=== PATIENT | male | born 1955 | race Caucasian/White ===

== ENCOUNTER → 2019-08-20 14:34 | Outpatient (BNVA) | payer MEDICAID, SELFPAY | PROVIDERS: Family Provider Nurse Practitioner; PCP Nurse Practitioner; Visit Provider Family Medicine | DX: N39.0 Urinary tract infection, site not specified (principal); N20.0 Calculus of kidney | CPT/HCPCS: 81001; 81003 ==

== ENCOUNTER → 2019-09-21 13:10 | Outpatient (BNVA) | payer MEDICAID, SELFPAY | PROVIDERS: Family Provider Nurse Practitioner; PCP Nurse Practitioner; Visit Provider Nurse Practitioner | DX: F20.89 Other schizophrenia (principal) | CPT/HCPCS: 99213 ==

== ENCOUNTER → 2019-10-31 11:55 | Outpatient (BNVA) | payer MEDICAID, SELFPAY | PROVIDERS: Family Provider Nurse Practitioner; PCP Nurse Practitioner Family; Visit Provider Nurse Practitioner Family | DX: R63.4 Abnormal weight loss (principal); S00.91XA Abrasion of unspecified part of head, initial encounter; X58.XXXA Exposure to other specified factors, initial encounter | CPT/HCPCS: 80053; 84443; 85025; 86705; 86706; 86709; 86803; 87340; 87806 ==

== ENCOUNTER → 2019-12-17 08:18 | Outpatient (BNVA) | payer MEDICAID, SELFPAY | PROVIDERS: Family Provider Nurse Practitioner; PCP Nurse Practitioner Family; Visit Provider Nurse Practitioner | DX: F20.89 Other schizophrenia (principal) | CPT/HCPCS: 99213 ==

== ENCOUNTER → 2020-01-08 17:36 | Outpatient (BNVA) | payer MEDICAID, SELFPAY | PROVIDERS: Family Provider Nurse Practitioner; PCP Nurse Practitioner Family; Visit Provider Nurse Practitioner Family | DX: R60.9 Edema, unspecified (principal) | CPT/HCPCS: 80053; 85025 ==

== ENCOUNTER → 2020-02-05 15:15 | Outpatient (BNVA) | payer MEDICAID, SELFPAY | PROVIDERS: Family Provider Nurse Practitioner; PCP Nurse Practitioner Family; Visit Provider Nurse Practitioner Family | DX: E78.5 Hyperlipidemia, unspecified (principal); E55.9 Vitamin D deficiency, unspecified; G40.909 Epilepsy, unspecified, not intractable, without status epilepticus; W57.XXXA Bitten or stung by nonvenomous insect and other nonvenomous arthropods, initial encounter | CPT/HCPCS: 80053; 80061; 80164; 82306; 85025 ==

== ENCOUNTER 2020-02-23 15:11 | Emergency (ER) | payer MEDICAID, SELFPAY ==
[2020-02-23 15:20] VITALS: BP 105/75; PULSE 86; RESP 18; TEMP 36.3; O2SAT 96; BMI 32.5
--- NOTE | 2020-02-23 15:38 | W.ED.SKABFB ---
HPI - Skin/Abscess/Foreign Bdy General: Chief complaint: Skin/Abscess/Foreign Body Stated complaint: bite on ear Time Seen by Provider: 02/23/20 15:29 History of Present Illness: HPI narrative: Patient states that while walking outside last night he felt like he might have been bit on the back of his left ear by a bug. Complains of tenderness behind left ear. No obvious bite rosemary induration or erythema. Patient has significant dry skin of his face especially behind his ears. No areas of concern noted MD complaint: other (Dry flaking skin) Onset (ago): day(s) (1 day) Location: face Severity: mild Pain Consistency: now resolved Exacerbating factors: none Context: none Associated symptoms: Reports no associated symptoms Treatments prior to arrival: none Review of Systems General: Reports: 10 or more systems reviewed and unremarkable except in HPI and below Skin/Breast: Reports: dry skin (Face and neck) PFS ED PFSH: Medical History Epilepsy Hyperlipidemia Other schizophrenia Vitamin D deficiency Family History Family/Other Hyperlipidemia Hypertension Stroke Social History Smoking and tobacco status: never smoked Second hand smoke exposure: No Caregiver/support person: Yes (brother) Lives independently: Yes Marital status: Single service: No Current occupational status: disabled History of recent travel: No Current gender identity: Male Physical Exam Const: COMMON NORMALS: no acute distress, average body habitus and patient oriented x3 HENMT: COMMON NORMALS: normocephalic and atraumatic HEAD & SCALP: normal to inspection, normocephalic and atraumatic Eye: COMMON NORMALS: Equal, round and reactive pupils present GENERAL EYE: appearance normal, both eyes and all related structures PUPIL: Yes Equal, round and reactive pupils present Neck/C-Spine: COMMON NORMALS: full ROM, no lymphadenopathy and no JVD Resp: COMMON NORMALS: normal respiratory effort, No retractions, No use of accessory muscles and clear to auscultation bilaterally AUSCULTATION: clear to auscultation bilaterally Cardio: COMMON NORMALS: no JVD, regular rate and regular rhythm RATE: regular rate RHYTHM: regular rhythm GI: COMMON NORMALS: Normal to inspection, nondistended, normoactive bowel sounds present Neuro: COMMON NORMALS: patient oriented x3 Skin: COMMON NORMALS: no rashes or lesions noted GENERAL SKIN EXAM: no rashes or lesions noted and dry skin (Significant dry skin the face, and behind ears with flaking) Course Vital Signs: Vital signs: Vital Signs Temperature 97.4 F L 02/23/20 15:20 Pulse Rate 86 02/23/20 15:20 Respiratory Rate 18 02/23/20 15:20 Blood Pressure 105/75 02/23/20 15:20 Pulse Oximetry 96 02/23/20 15:20 MDM - Skin/Abscess/Foreign Bdy MDM Narrative: Medical decision making narrative: Discussed using Eucerin, or another scent free moisturizer for face and behind ears especially along neck. Follow-up with primary care provider Discharge Plan Discharge Patient Disposition: Home, Self-Care Clinical Impression: Dry skin dermatitis Condition: Stable Prescriptions: No Action tramadol 50 mg tablet 50 mg PO Q8H PRN (Reason: pain) Qty: 20 RF: 0 sertraline 100 mg tablet 100 mg PO Q24H Qty: 30 RF: 2 paliperidone [Invega] 9 mg tablet extended release 24hr 9 mg PO DAILY Qty: 30 RF: 2 propranolol [Inderal LA] 60 mg capsule,extended release 24 hr 60 mg PO DAILY Qty: 30 RF: 2 mupirocin 2 % ointment 1 applic TOPICAL BID Qty: 15 RF: 0 cholecalciferol (vitamin D3) 2,000 unit tablet 2,000 unit PO ONCE RF: 0 fluticasone propionate [Flonase Allergy Relief] 50 mcg/actuation spray,suspension 2 spray INTRANASAL ONCE RF: 0 albuterol sulfate [ProAir HFA] 90 mcg/actuation HFA aerosol inhaler 2 puff INHALATION Q6H PRNRF: 0 olopatadine [Pataday] 0.2 % drops 1 drop ophthalmic (eye) QAM RF: 0 divalproex [Depakote ER] 500 mg tablet extended release 24 hr 1,000 mg PO .at bed RF: 0 diclofenac sodium 50 mg tablet,delayed release (DR/EC) 50 mg PO BID Qty: 60 RF: 2 phenazopyridine [Pyridium] 100 mg tablet 100 mg PO TID PRN (Reason: pain) Qty: 20 RF: 0 docusate sodium [Colace] 100 mg capsule 100 mg PO DAILY Qty: 30 RF: 5 montelukast [Singulair] 10 mg tablet 10 mg PO DAILY Qty: 30 RF: 5 aspirin [Adult Aspirin Regimen] 81 mg tablet,delayed release (DR/EC) 81 mg PO DAILY Qty: 90 RF: 3 atorvastatin 40 mg tablet See Rx Instructions .ROUTE .COMPLEX Qty: 30 RF: 5 magnesium oxide 400 mg (241.3 mg magnesium) tablet See Rx Instructions .ROUTE .COMPLEX Qty: 60 RF: 5 loratadine 10 mg tablet See Rx Instructions .ROUTE .COMPLEX Qty: 30 RF: 11 Discharge Orders: Discharge Order (Routine); Ordered 02/23/20 Ordered By: Oriana Gee Referrals: Santos Erazo FNP-C [Family Provider] - Dafne Torres FNP [Primary Care Provider] - Discharge Diet: Usual diet Discharge Activity: Resume usual activity Activity Restrictions/Additional Instructions: Use a facial moisturizer that is scent free such as Aveeno or Eucerin daily. 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
[2020-02-23 16:07] VITALS: BP 116/71; PULSE 74; RESP 18; TEMP 36.3; O2SAT 96
== END 2020-02-23 16:09 | disposition home or self-care (01) ==
LOC: ER 16:10
PROVIDERS: Emergency Provider Nurse Practitioner Family; Family Provider Nurse Practitioner; PCP Nurse Practitioner Family
DX: L30.8 Other specified dermatitis (principal); Z79.82 Long term (current) use of aspirin; E78.5 Hyperlipidemia, unspecified
CPT/HCPCS: 12345; 99281

== ENCOUNTER → 2020-03-14 08:25 | Outpatient (BNVA) | payer MEDICAID, SELFPAY | PROVIDERS: Family Provider Nurse Practitioner; PCP Nurse Practitioner Family; Visit Provider Nurse Practitioner | DX: F20.89 Other schizophrenia (principal); F41.1 Generalized anxiety disorder | CPT/HCPCS: 99213 ==

== ENCOUNTER → 2020-05-13 09:02 | Outpatient (BNVA) | payer OTHER, SELFPAY | PROVIDERS: Family Provider Nurse Practitioner; PCP Nurse Practitioner Family; Visit Provider Nurse Practitioner | DX: F20.0 Paranoid schizophrenia (principal); Z79.899 Other long term (current) drug therapy | CPT/HCPCS: 80061; 83036 ==

== ENCOUNTER → 2020-05-19 08:21 | Outpatient (BNVA) | payer MEDICAID, SELFPAY ==
[2020-05-14 09:06] VITALS: BP 130/83; BMI 31.7
== END ==
PROVIDERS: Family Provider Nurse Practitioner; PCP Nurse Practitioner Family; Visit Provider Nurse Practitioner
DX: F20.89 Other schizophrenia (principal); F41.1 Generalized anxiety disorder; G40.309 Generalized idiopathic epilepsy and epileptic syndromes, not intractable, without status epilepticus
CPT/HCPCS: 99212; 99213

== ENCOUNTER → 2020-06-03 14:40 | Outpatient (BNVA) | payer MEDICAID, SELFPAY ==
[2020-05-14 09:06] VITALS: BP 130/83; BMI 31.7
== END ==
PROVIDERS: Family Provider Nurse Practitioner; PCP Nurse Practitioner Family; Visit Provider Nurse Practitioner Family
DX: R10.84 Generalized abdominal pain (principal); B37.81 Candidal esophagitis; B37.0 Candidal stomatitis; R19.7 Diarrhea, unspecified
CPT/HCPCS: 80053; 85025

== ENCOUNTER → 2020-06-09 17:01 | Outpatient (BNVA) | payer MEDICAID, SELFPAY ==
[2020-05-14 09:06] VITALS: BP 130/83; BMI 31.7
== END ==
PROVIDERS: Family Provider Nurse Practitioner; PCP Nurse Practitioner Family; Visit Provider Nurse Practitioner Family
DX: N30.90 Cystitis, unspecified without hematuria (principal); R10.84 Generalized abdominal pain
CPT/HCPCS: 80053; 81003

== ENCOUNTER → 2020-06-19 14:19 | Outpatient (BNVA) | payer MEDICAID, SELFPAY ==
[2020-05-14 09:06] VITALS: BP 130/83; BMI 31.7
== END ==
PROVIDERS: Family Provider Nurse Practitioner; PCP Nurse Practitioner Family; Visit Provider Nurse Practitioner
DX: J02.9 Acute pharyngitis, unspecified (principal)
CPT/HCPCS: 87071; 87880

== ENCOUNTER → 2020-09-05 07:53 | Outpatient (BNVA) | payer MEDICAID, SELFPAY ==
[2020-05-14 09:06] VITALS: BP 130/83; BMI 31.7
== END ==
PROVIDERS: Family Provider Nurse Practitioner; PCP Nurse Practitioner Family; Visit Provider Nurse Practitioner
DX: F20.89 Other schizophrenia (principal); F33.40 Major depressive disorder, recurrent, in remission, unspecified
CPT/HCPCS: 99214

== ENCOUNTER → 2020-09-11 14:03 | Outpatient (BNVA) | payer MEDICAID, SELFPAY ==
[2020-05-14 09:06] VITALS: BP 130/83; BMI 31.7
== END ==
PROVIDERS: Family Provider Nurse Practitioner; PCP Nurse Practitioner Family; Visit Provider Nurse Practitioner Family
DX: M25.561 Pain in right knee (principal); M25.562 Pain in left knee; M17.11 Unilateral primary osteoarthritis, right knee
CPT/HCPCS: 73562

== ENCOUNTER → 2020-09-23 15:19 | Outpatient (BNVA) | payer MEDICAID, SELFPAY ==
[2020-09-16 15:52] VITALS: BP 130/83; BMI 31.7
== END ==
PROVIDERS: Family Provider Nurse Practitioner; PCP Nurse Practitioner Family; Visit Provider Nurse Practitioner Family
DX: M25.552 Pain in left hip (principal); M54.5 Low back pain
CPT/HCPCS: 72100; 73502

== ENCOUNTER → 2020-11-21 07:35 | Outpatient (BNVA) | payer MEDICAID, SELFPAY ==
[2020-09-16 15:52] VITALS: BP 130/83; BMI 31.7
== END ==
PROVIDERS: Family Provider Nurse Practitioner; PCP Nurse Practitioner Family; Visit Provider Nurse Practitioner
DX: F20.89 Other schizophrenia (principal); F33.40 Major depressive disorder, recurrent, in remission, unspecified
CPT/HCPCS: 99214

== ENCOUNTER → 2021-01-09 13:47 | Outpatient (BNVA) | payer MEDICAID, SELFPAY ==
[2020-09-16 15:52] VITALS: BP 130/83; BMI 31.7
== END ==
PROVIDERS: Family Provider Nurse Practitioner; PCP Nurse Practitioner Family; Visit Provider Nurse Practitioner Family
DX: N39.0 Urinary tract infection, site not specified (principal); L71.9 Rosacea, unspecified; H00.012 Hordeolum externum right lower eyelid; Z68.30 Body mass index [BMI] 30.0-30.9, adult
CPT/HCPCS: 81000

== ENCOUNTER → 2021-01-20 17:36 | Outpatient (BNVA) | payer MEDICAID, SELFPAY ==
[2020-09-16 15:52] VITALS: BP 130/83; BMI 31.7
== END ==
PROVIDERS: Family Provider Nurse Practitioner; PCP Nurse Practitioner Family; Visit Provider Nurse Practitioner Family
DX: R41.0 Disorientation, unspecified (principal)
CPT/HCPCS: 80053; 81000; 85025; 87071; 87880

== ENCOUNTER → 2021-01-22 15:39 | Outpatient (BNVA) | payer MEDICAID, SELFPAY ==
[2020-09-16 15:52] VITALS: BP 130/83; BMI 31.7
== END ==
PROVIDERS: Family Provider Nurse Practitioner; PCP Nurse Practitioner Family; Visit Provider Nurse Practitioner Family
DX: W57.XXXA Bitten or stung by nonvenomous insect and other nonvenomous arthropods, initial encounter (principal)
CPT/HCPCS: 80053; 85025; 86618; 86666; 86757

== ENCOUNTER 2021-02-14 09:31 | Emergency (ER) | payer MEDICAID, SELFPAY ==
[2020-09-16 15:52] VITALS: BP 130/83; BMI 31.7
[2021-02-14 09:39] VITALS: BP 151/107; PULSE 90; RESP 16; TEMP 36.8; O2SAT 98; BMI 31.8
[2021-02-14 09:53] VITALS: BP 133/73; PULSE 85; RESP 16; O2SAT 98
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
[2021-02-14] MEDS: acetaminophen 500 mg Tablet 1000 MG PO (10:31)
[2021-02-14 11:19] VITALS: BP 127/69; PULSE 86; O2SAT 97
== END 2021-02-14 11:20 | disposition home or self-care (01) ==
PROVIDERS: Emergency Provider Physician Assistant; PCP Nurse Practitioner Family
DX: S13.4XXA Sprain of ligaments of cervical spine, initial encounter (principal); M54.9 Dorsalgia, unspecified; V89.2XXA Person injured in unspecified motor-vehicle accident, traffic, initial encounter; Z79.82 Long term (current) use of aspirin; E78.5 Hyperlipidemia, unspecified
CPT/HCPCS: 72125; 72131; 99283

== ENCOUNTER → 2021-03-31 07:50 | Outpatient (BNVA) | payer MEDICAID, SELFPAY ==
[2020-09-16 15:52] VITALS: BP 130/83; BMI 31.7
== END ==
PROVIDERS: PCP Nurse Practitioner Family; Visit Provider Nurse Practitioner
DX: F33.40 Major depressive disorder, recurrent, in remission, unspecified (principal); F20.89 Other schizophrenia
CPT/HCPCS: 99214

== ENCOUNTER → 2021-04-10 13:27 | Outpatient (BNVA) | payer MEDICAID, SELFPAY ==
[2020-09-16 15:52] VITALS: BP 130/83; BMI 31.7
== END ==
PROVIDERS: PCP Nurse Practitioner Family; Visit Provider Nurse Practitioner Family
DX: N30.01 Acute cystitis with hematuria (principal)
CPT/HCPCS: 81000; 87077; 87086; 87184

== ENCOUNTER → 2021-05-20 14:07 | Outpatient (BNVA) | payer MEDICAID, SELFPAY ==
[2020-09-16 15:52] VITALS: BP 130/83; BMI 31.7
== END ==
PROVIDERS: PCP Nurse Practitioner Family; Visit Provider Specialist
DX: G40.909 Epilepsy, unspecified, not intractable, without status epilepticus (principal)
CPT/HCPCS: 99213; 99214

== ENCOUNTER → 2021-06-02 16:34 | Outpatient (BNVA) | payer MEDICAID, SELFPAY ==
[2020-09-16 15:52] VITALS: BP 130/83; BMI 31.7
== END ==
PROVIDERS: PCP Nurse Practitioner Family; Visit Provider Nurse Practitioner Family
DX: M25.561 Pain in right knee (principal); M25.562 Pain in left knee; R07.9 Chest pain, unspecified; M17.0 Bilateral primary osteoarthritis of knee
CPT/HCPCS: 73562; 80053; 80061; 83735; 84443; 85025

== ENCOUNTER → 2021-06-04 13:04 | Outpatient (BNVA) | payer MEDICAID, SELFPAY ==
[2020-09-16 15:52] VITALS: BP 130/83; BMI 31.7
== END ==
PROVIDERS: PCP Nurse Practitioner Family; Visit Provider Nurse Practitioner Family
DX: R30.0 Dysuria (principal); N48.1 Balanitis
CPT/HCPCS: 81003

== ENCOUNTER → 2021-06-15 15:42 | Outpatient (BNVA) | payer MEDICAID, SELFPAY ==
[2021-06-09 08:57] VITALS: BP 130/83; BMI 31.7
== END ==
PROVIDERS: PCP Nurse Practitioner Family; Visit Provider Nurse Practitioner Family
DX: J02.9 Acute pharyngitis, unspecified (principal)
CPT/HCPCS: 87071; 87880

== ENCOUNTER → 2021-07-01 07:51 | Outpatient (BNVA) | payer MEDICAID, SELFPAY ==
[2021-06-09 08:57] VITALS: BP 130/83; BMI 31.7
== END ==
PROVIDERS: PCP Nurse Practitioner Family; Visit Provider Nurse Practitioner
DX: F20.89 Other schizophrenia (principal); F33.40 Major depressive disorder, recurrent, in remission, unspecified
CPT/HCPCS: 99214

== ENCOUNTER → 2021-08-31 14:12 | Outpatient (BNVA) | payer MEDICAID, SELFPAY ==
[2021-06-09 08:57] VITALS: BP 130/83; BMI 31.7
== END ==
PROVIDERS: PCP Nurse Practitioner Family; Visit Provider Nurse Practitioner
DX: F33.40 Major depressive disorder, recurrent, in remission, unspecified (principal); F20.89 Other schizophrenia
CPT/HCPCS: 99214

== ENCOUNTER → 2021-09-28 14:26 | Outpatient (BNVA) | payer MEDICAID, SELFPAY ==
[2021-06-09 08:57] VITALS: BP 130/83; BMI 31.7
== END ==
PROVIDERS: PCP Nurse Practitioner Family; Visit Provider Specialist
DX: M25.561 Pain in right knee (principal); M25.562 Pain in left knee; M17.0 Bilateral primary osteoarthritis of knee
CPT/HCPCS: 73560; 73565

== ENCOUNTER → 2021-09-29 08:22 | Outpatient (BNVA) | payer MEDICAID, SELFPAY ==
[2021-06-09 08:57] VITALS: BP 130/83; BMI 31.7
== END ==
PROVIDERS: PCP Nurse Practitioner Family; Visit Provider Nurse Practitioner
DX: F20.89 Other schizophrenia (principal); F33.40 Major depressive disorder, recurrent, in remission, unspecified
CPT/HCPCS: 99214

== ENCOUNTER → 2021-11-18 09:27 | Outpatient (BNVA) | payer MEDICAID, SELFPAY ==
[2021-06-09 08:57] VITALS: BP 130/83; BMI 31.7
== END ==
PROVIDERS: PCP Nurse Practitioner Family; Visit Provider Specialist
DX: G40.309 Generalized idiopathic epilepsy and epileptic syndromes, not intractable, without status epilepticus (principal)
CPT/HCPCS: 99213

== ENCOUNTER → 2021-11-25 11:43 | Outpatient (BNVA) | payer MEDICAID, SELFPAY ==
[2021-11-24 08:31] VITALS: BP 130/83; BMI 31.7
== END ==
PROVIDERS: PCP Nurse Practitioner Family; Visit Provider Nurse Practitioner Family
DX: E78.5 Hyperlipidemia, unspecified (principal); Z12.5 Encounter for screening for malignant neoplasm of prostate; R73.9 Hyperglycemia, unspecified; E55.9 Vitamin D deficiency, unspecified; N40.0 Benign prostatic hyperplasia without lower urinary tract symptoms; K21.9 Gastro-esophageal reflux disease without esophagitis; J30.9 Allergic rhinitis, unspecified
CPT/HCPCS: 80053; 80061; 82306; 83036; 83735; 84443; 85025; G0103

== ENCOUNTER → 2021-12-22 11:01 | Outpatient (BNVA) | payer MEDICAID, SELFPAY ==
[2021-11-24 08:31] VITALS: BP 130/83; BMI 31.7
== END ==
PROVIDERS: PCP Nurse Practitioner Family; Visit Provider Nurse Practitioner
DX: F33.40 Major depressive disorder, recurrent, in remission, unspecified (principal); F20.89 Other schizophrenia
CPT/HCPCS: 99214

== ENCOUNTER 2022-03-26 14:10 | Inpatient (IN) | payer MEDICAID, SELFPAY ==
[2021-11-24 08:31] VITALS: BP 130/83; BMI 31.7
[2022-03-26] VITALS (7 sets, daily range): BP systolic 85–127; BP diastolic 59–79; PULSE 77–87; RESP 16–24; TEMP 36.7–37.5; O2SAT 94–96; BMI 30.5
--- NOTE | 2022-03-26 15:18 | CTR_ITS ---
PROCEDURE INFORMATION: Exam: CT Abdomen And Pelvis Without Contrast Exam date and time: 03/26/2022 3:38 PM Age: 66 years old Clinical indication: Abdominal pain; Generalized; Patient HX: PT states HX of kidney stones; Limited HX due to PT communication ability; Additional info: Flank pain TECHNIQUE: Imaging protocol: Computed tomography of the abdomen and pelvis without contrast. Radiation optimization: All CT scans at this facility use at least one of these dose optimization techniques: automated exposure control; mA and/or kV adjustment per patient size (includes targeted exams where dose is matched to clinical indication); or iterative reconstruction. COMPARISON: CR XR hip LT 2-3V wo/w pel* [id number] 09/23/2020 3:25 PM RADIATION DOSE METRICS: Total DLP (mGy-cm): 1036.13 FINDINGS: Lungs: Left basilar linear scarring-atelectasis. Heart: Mild cardiomegaly with no obvious coronary calcification. Next item tiny hiatal hernia. Liver: Mild hepatomegaly with steatosis. No cirrhosis. Gallbladder and bile ducts: Normal. No calcified stones. No ductal dilation. Pancreas: Fatty replacement of the pancreas with no obvious ductal dilatation. Spleen: Normal. No splenomegaly. Adrenal glands: Normal. No mass. Kidneys and ureters: Minimal nonspecific perinephric stranding without collection. UTI should be excluded clinically. No hydronephrosis or obstructing calculi. Stomach and bowel: Moderate amount of fecal retention. No obvious bowel dilatation, pneumatosis or suspicious bowel wall thickening however assessment is limited due to lack of contrast. Extensive colonic diverticulosis. Appendix: Normal appendix. Intraperitoneal space: Unremarkable. No free air. No significant fluid collection. Vasculature: No abdominal aortic aneurysm. Lymph nodes: No enlarged lymph nodes. Urinary bladder: Urinary bladder is suboptimally assessed due to incomplete distention however there is possible nonspecific bladder wall thickening. This may be related to chronic hypertrophy and/or cystitis. Clinical correlation is needed. Reproductive: Mildly enlarged prostate. Bones/joints: Multilevel vertebral disc degeneration and endplate osteophytes. No acute osseous findings otherwise. Soft tissues: Tiny bilateral fat-containing inguinal hernias. CT/CT kidney stone [id number] IMPRESSION: 1. Mild hepatomegaly with steatosis. 2. No obstructing urinary calculi. Mild perinephric stranding and possible mild bladder wall thickening. See discussion above. 3. Mildly enlarged prostate. 4. Colonic diverticulosis without acute bowel findings. Somewhat limited exam due to lack of contrast.
--- NOTE | 2022-03-26 15:20 | XR_ITS ---
WS: [id number] XR chest 1V portable [id number] REASON FOR EXAM: abd pain FINDINGS: Moderate tortuosity and ectasia of the thoracic aorta. Normal heart size. Calcified granulomatous disease in both hemithoraces. No acute pulmonary parenchymal or pleural disease. Mild to moderate thoracic scoliosis with mild to moderate degenerative spondylosis. XR/XR chest 1V portable [id number] IMPRESSION: No acute chest abnormality.
--- NOTE | 2022-03-26 15:21 | ED_ITS ---
HPI - Abdominal Pain General: Chief Complaint: Abdominal Pain Stated Complaint: KIDNEY STONES Time Seen by Provider: 03/26/22 15:11 Source: patient Mode of arrival: ambulatory Limitations: no limitations History of Present Illness: 66-year-old male states he had a history of kidney stones he states that over the last 2 days he has been having increasing flank pain along with some dysuria and is concerned he either has a kidney stone or a kidney infection. Said some mild abdominal pain he states flank pain is a 5 out of 10 denies any fever denies any vomiting or diarrhea denies any worsening proving factors denies any chest pain he is in no distress here. Associated Symptoms: Denies chills and fever(s) Review of Systems Const: Denies: fever(s), chills, body aches or change in appetite Eyes: Denies: blurry vision or eye discomfort ENMT: Denies: throat pain or dental pain Card: Denies: chest pain Resp: Denies: dyspnea GI: Reports: abdominal pain : Reports: flank pain Musc: Denies: neck pain or back pain Skin/Breast: Denies: rash Neuro: Denies: headache(s) Psych: Denies: depression Jay/Lymph: Denies: easy bruising All/Imm: Denies: urticaria PFSH ED PFSH: Medical History ASHD (arteriosclerotic heart disease) Constipation Epilepsy Hyperlipidemia Major depressive disorder, recurrent, in remission Major depressive disorder, recurrent, in remission, unspecified Other schizophrenia Paranoid schizophrenia Psychiatric care Psychiatric care Vitamin D deficiency Surgical History History of back surgery (~1993) Hx of arthroscopy of left knee (~2006) Hx of arthroscopy of right knee (1994) Hx of colonoscopy (~2017) recheck 3 yrs Hx of hemorrhoidectomy (~1991) Family History Family/Other Hyperlipidemia Hypertension Stroke Other Cancer Diabetes Social History Smoking and tobacco status: never smoked Second hand smoke exposure: No Alcohol intake: never Adopted: No Caregiver/support person: Yes (brother) Lives independently: Yes Household members: family Marital status: Single service: No Current occupational status: disabled History of recent travel: No Current gender identity: Male Alissa/Confucianist: Yazidi Special alissa needs: No Agree to transfusion: Yes Physical Exam Const: COMMON NORMALS: no acute distress, patient oriented x3 and healthy appearing HENMT: COMMON NORMALS: normocephalic and atraumatic HEAD & SCALP: normocephalic and atraumatic Eye: COMMON NORMALS: Equal, round and reactive pupils present and EOMs intact bilaterally PUPIL: Yes Equal, round and reactive pupils present Neck/C-Spine: COMMON NORMALS: full ROM and supple Chest: COMMONS NORMALS: normal inspection of the chest and normal palpation of entire chest wall Resp: COMMON NORMALS: normal respiratory effort, No retractions, No use of accessory muscles and clear to auscultation bilaterally AUSCULTATION: clear to auscultation bilaterally Cardio: COMMON NORMALS: regular rate, regular rhythm and No murmurs present (Cardio) RATE: regular rate RHYTHM: regular rhythm GI: COMMON NORMALS: Normal to inspection, nondistended, normoactive bowel sounds present, Soft to palpation, non-tender and no masses PALPATION: Yes Soft to palpation Extremity: COMMON NORMALS: normal to inspection and full ROM Neuro: COMMON NORMALS: patient oriented x3, moves all extremities and no focal motor deficits Psych: COMMON NORMALS: mental status grossly normal, Normal thought process present and cooperative THOUGHT PROCESS: Normal thought process present Skin: COMMON NORMALS: no rashes or lesions noted and no wounds GENERAL SKIN EXAM: no rashes or lesions noted Course Vital Signs: Vital signs: Vital Signs Temperature 99.1 F 03/26/22 15:00 Pulse Rate 87 03/26/22 15:17 Respiratory Rate 16 03/26/22 15:17 Blood Pressure 115/68 03/26/22 15:17 Pulse Oximetry 95 03/26/22 15:17 Oxygen Delivery Me thod 03/26/22 15:17 MDM - Abdominal Pain Medical Decision Making Patient presents here with likely pyelonephritis he has some stranding on the CT scan he has an elevated white count along with nitrite positive urine with bacteria in his urine his blood pressure is improved after IV fluids will admit for IV antibiotics patient's been stable while here return if worsening. Lab Data : 03/26/22 15:35 03/26/22 15:35 Labs/Radiology: Radiology Impressions Abdomen/Pelvis CT 03/26/22 15:18 IMPRESSION: 1. Mild hepatomegaly with steatosis. 2. No obstructing urinary calculi. Mild perinephric stranding and possible mild bladder wall thickening. See discussion above. 3. Mildly enlarged prostate. 4. Colonic diverticulosis without acute bowel findings. Somewhat limited exam due to lack of contrast. Chest X-Ray 03/26/22 15:20 IMPRESSION: No acute chest abnormality. Laboratory Results WBC 22.6 10^3/uL (4.0-10.0) H 03/26/22 15:35 RBC 4.58 10^6/uL (4.1-5.3) 03/26/22 15:35 Hgb 13.7 g/dL (11.7-16.6) 03/26/22 15:35 Hct 42.2 % (42.0-52.0) 03/26/22 15:35 MCV 92.1 fl (80-94) 03/26/22 15:35 MCH 29.9 pg (28.0-34.0) 03/26/22 15:35 MCHC 32.5 g/dL (30.0-36.0) 03/26/22 15:35 RDW 14.1 % (12.1-15.1) 03/26/22 15:35 Plt Count 151 10^3/cmm (130-400) 03/26/22 15:35 MPV 10.6 fL (7.4-10.4) H 03/26/22 15:35 Neut % (Auto) 63.7 % 03/26/22 15:35 Lymph % (Auto) 5.9 % 03/26/22 15:35 Valencia % (Auto) 9.7 % 03/26/22 15:35 Eos % (Auto) 19.0 % 03/26/22 15:35 Baso % (Auto) 0.4 % 03/26/22 15:35 Neut # (Auto) 14.40 10^3/uL (1.8-7.7) H 03/26/22 15:35 Lymph # (Auto) 1.3 10^3/uL (0.8-4.8) 03/26/22 15:35 Valencia # (Auto) 2.2 10^3/uL (0.2-0.9) H 03/26/22 15:35 Eos # (Auto) 4.3 10^3/uL (0.0-0.8) H 03/26/22 15:35 Baso # (Auto) 0.1 10^3/uL (0.0-0.1) 03/26/22 15:35 Nucleated RBC % (auto) 0 % 03/26/22 15:35 Nucleated RBCs # 0.0 /100WBC 03/26/22 15:35 Sodium 140 mmol/L (136-145) 03/26/22 15:35 Potassium 3.7 mmol/L (3.5-5.1) 03/26/22 15:35 Chloride 103 mmol/L (98-107) 03/26/22 15:35 Carbon Dioxide 22 mmol/L (22-29) 03/26/22 15:35 Anion Gap 18.7 (5-19) 03/26/22 15:35 BUN 18 mg/dL (8-23) 03/26/22 15:35 Creatinine 1.4 mg/dL (0.7-1.2) H 03/26/22 15:35 GFR Calculation 50.4 mL/min (90-130) L 03/26/22 15:35 Glucose 134 mg/dL (65-115) H 03/26/22 15:35 Calculated Osmolality 294 mOsm/kg (285-295) 03/26/22 15:35 Lactic Acid 2.3 mmol/L (0.5-2.2) H 03/26/22 15:35 Calcium 8.6 mg/dL (8.5-10.5) 03/26/22 15:35 Total Bilirubin 1.1 mg/dL (0.15-1.2) 03/26/22 15:35 AST 15 U/L (0-40) 03/26/22 15:35 ALT 24 U/L (0-41) 03/26/22 15:35 Alkaline Phosphatase 74 IU/L (40-130) 03/26/22 15:35 Total Protein 6.7 g/dL (6.6-8.7) 03/26/22 15:35 Albumin 3.6 g/dL (3.5-5.2) 03/26/22 15:35 Globulin 3.1 g/dL (1.3-4.6) 03/26/22 15:35 Lipase 11 U/L (13-60) L 03/26/22 15:35 Urine Color Tama (Yellow) 03/26/22 17:03 Urine Appearance Cloudy (CLEAR) A 03/26/22 17:03 Urine pH 5 (5-7) 03/26/22 17:03 Ur Specific Stevenson 1.025 (1.005-1.030) 03/26/22 17:03 Urine Protein 3+ (Negative) H 03/26/22 17:03 Urine Glucose (UA) Norm (Normal) 03/26/22 17:03 Urine Ketones 1+ (Negative) H 03/26/22 17:03 Urine Blood 3+ (Negative) H 03/26/22 17:03 Urine Nitrate Positive (Negative) H 03/26/22 17:03 Urine Bilirubin 1+ (Negative) H 03/26/22 17:03 Urine Urobilinogen 1 mg/dL (Negative) H 03/26/22 17:03 Ur Leukocyte Esterase 2+ (Negative) H 03/26/22 17:03 Urine RBC 10-15 /hpf (0-2) H 03/26/22 17:03 Urine WBC Too numerous to cnt /hpf (0-5) H 03/26/22 17:03 Ur Squamous Epith Cells 0-4 /hpf (0-5) H 03/26/22 17:03 Amorphous Sediment Not Reportable 03/26/22 17:03 Urine Bacteria 2+ /hpf (NONE) H 03/26/22 17:03 Discharge Plan Discharge Condition: Stable Prescriptions: No Action sertraline 100 mg tablet 100 mg PO Q24H Qty: 30 2RF propranolol [Inderal LA] 60 mg capsule,extended release 24 hr 60 mg PO DAILY Qty: 30 2RF metronidazole 1 % gel See Rx Instructions .ROUTE .COMPLEX Qty: 60 1RF Dose Instruction: APPLY topically TO THE AFFECTED AREA DAILY. Rx Instructions: APPLY topically TO THE AFFECTED AREA DAILY. paliperidone [Invega] 9 mg tablet extended release 24hr 9 mg PO DAILY Qty: 30 2RF atorvastatin 40 mg tablet 40 mg PO DAILY aspirin 81 mg tablet,delayed release (DR/EC) 81 mg PO DAILY magnesium oxide 400 mg (241.3 mg magnesium) tablet 400 mg PO BID divalproex 500 mg tablet extended release 24 hr 1,000 mg PO BEDTIME docusate sodium 100 mg capsule 100 mg PO DAILY omeprazole 20 mg capsule,delayed release(DR/EC) 20 mg PO BID montelukast 10 mg tablet 10 mg PO DAILY diclofenac sodium 50 mg tablet,delayed release (DR/EC) 50 mg PO BID ergocalciferol (vitamin D2) 1,250 mcg (50,000 unit) capsule 50,000 unit PO Q7D Ventolin HFA 90 mcg/actuation HFA aerosol inhaler 2 puff inhalation Q6H PRN (Reason: Shortness Of Breath) loratadine 10 mg tablet 10 mg PO DAILY Voltaren Arthritis Pain 1 % gel 4 g topical QID PRN (Reason: Pain) Rx Instructions: apply to single knee, ankle, foot; for foot includes sole/toes/top of foot Referrals: Dafne Torres FNP [Primary Care Provider] - Coding Level of Care Code ED Part Time Receptionist for Chg Fwd Exam Comprehensive
[2022-03-26 15:48] LABS: Basophils # 0.1 10^3/uL (0.0-0.1); Basophils % 0.4 %; Eosinophils # 4.3 10^3/uL (0.0-0.8); Hematocrit 42.2 % (42.0-52.0); Hemoglobin 13.7 g/dL (11.7-16.6); Lymphocytes # 1.3 10^3/uL (0.8-4.8); Lymphocytes % 5.9 %; Mean Corpuscular HGB Conc 32.5 g/dL (30.0-36.0); Mean Corpuscular Hemoglobin 29.9 pg (28.0-34.0); Mean Corpuscular Volume 92.1 fl (80-94); Mean Platelet Volume 10.6 fL (7.4-10.4); Monocytes # 2.2 10^3/uL (0.2-0.9); Monocytes % 9.7 %; Neutrophils % 63.7 %; Nucleated Red Blood Cells % 0 %; Platelet Count 151 10^3/cmm (130-400); Red Blood Count 4.58 10^6/uL (4.1-5.3); Red Cell Distribution Width 14.1 % (12.1-15.1); White Blood Count 22.6 10^3/uL (4.0-10.0)
[2022-03-26] MEDS: sodium chloride 0.9% 1,000 ML 999 ML IV (15:55)
[2022-03-26 16:04] LABS: Lactic Sepsis W/Reflex 2.3 mmol/L (0.5-2.2)
[2022-03-26 16:07] LABS: Slide Review Slide Review Perform
[2022-03-26 16:13] LABS: Alanine Aminotransferase 24 U/L (0-41); Albumin Level 3.6 g/dL (3.5-5.2); Alkaline Phosphatase 74 IU/L (40-130); Anion Gap 18.7 (5-19); Aspartate Amino Transferase 15 U/L (0-40); Blood Urea Nitrogen 18 mg/dL (8-23); Calcium 8.6 mg/dL (8.5-10.5); Carbon Dioxide 22 mmol/L (22-29); Chloride 103 mmol/L (98-107); Globulin 3.1 g/dL (1.3-4.6); Glomerular Filtration Rate 50.4 mL/min (90-130); Glucose 134 mg/dL (65-115); Lipase 11 U/L (13-60); Osmolality Calculated 294 mOsm/kg (285-295); Potassium 3.7 mmol/L (3.5-5.1); Sodium 140 mmol/L (136-145); Total Bilirubin 1.1 mg/dL (0.15-1.2); Total Protein 6.7 g/dL (6.6-8.7)
--- NOTE | 2022-03-26 16:26 | PC.PHAR ---
pt unable to verify medications-pt states he has a nurse from [facility] waiting on med list to be faxed from [facility]-medications entered are what ext med history shows has been filled recently-[facility] states the pt told them back in jul 2021 that he no longer was taking flomax states it was making him pee to much rx last filled 08/03/21 30d/s
[2022-03-26 17:22] LABS: Add Urine Microscopic? YES; Bilirubin Urine 1+ (Negative); Blood Urine 3+ (Negative); Glucose Urine UA Norm (Normal); Ketones Urine 1+ (Negative); Leukocyte Esterase Urine 2+ (Negative); Nitrate Urine Positive (Negative); Protein Urine 3+ (Negative); Specific Gravity, Urine 1.025 (1.005-1.030); Urine Appearance Cloudy (CLEAR); Urine Color Orange (Yellow); Urobilinogen Urine 1 mg/dL (Negative); pH Urine 5 (5-7)
[2022-03-26 17:23] LABS: Add Urine Culture? Yes; Bacteria Urine 2+ /hpf; Squamous Epithelial Cell Urine 0-4 /hpf (0-5); WBC Urine TOO NUMEROUS TO CNT /hpf (0-5)
[2022-03-26 17:29] LABS: Reflex Lactate Order REFLEX LACTIC ORDERD
[2022-03-26] MEDS: cefTRIAXone 1,000 MG in sodium chloride 0.9% (plus) 50 ML 100 MG IV (17:50)
[2022-03-26 18:18] LABS: Lactic Acid level (Lactate) 1.8 mmol/L (0.5-2.2)
--- NOTE | 2022-03-26 19:40 | P.HP_ITS ---
Providers/Chief Complaint Admitting Physician: Kaiden Bartlett MD Primary Care Provider: GUERRERO Lockhart Chief Complaint: KIDNEY STONES History of Present Illness Mateo Thomas is a 66 year old male with a past medical history of epilepsy, hyperlipidemia, depression, schizophrenia, CAD, developmental delay, who presents to [facility] due to fatigue, malaise, nausea, flank pain, abdominal pain. He tells me that he has a history of kidney stones, he has been having flank pain, dysuria, for the last few days, has had some nausea, no vomiting episodes, no lightheadedness, dizziness. In the emergency room he was diagnosed with a UTI, CT with evidence of pyelonephritis, no evidence of nephrolithiasis, hospitalist team was called for admission. In the ER no sig nificant hemodynamic instability, no tachycardia, afebrile, on room air, currently he is resting comfortably, denies lightheadedness, dizziness, no shortness of breath, chest pain, having some abdominal pain and some flank pain Review of Systems Const: Reports: fatigue and malaise; Denies: fever(s) Card: Denies: chest pain Resp: Denies: dyspnea GI: Reports: abdominal pain : Reports: flank pain and dysuria Medications/Allergies Home Medications Medication Instructions Recorded Confirmed Last Taken Type metronidazole 1 % topical gel See Rx Instructions .Route 12/18/21 03/26/22 Unknown Rx .COMPLEX #60 grams propranolol 60 mg capsule,24 60 mg PO DAILY #30 caps 12/22/21 03/26/22 Unknown Rx hr,extended release (Inderal LA) sertraline 100 mg tablet 100 mg PO Q24H #30 tabs 12/22/21 03/26/22 Unknown Rx paliperidone 9 mg tablet,extended 9 mg PO DAILY #30 tabs 03/22/22 03/26/22 Unknown Rx release 24 hr (Invega) albuterol sulfate 90 mcg/actuation 2 puff inhalation Q6H PRN 03/26/22 03/26/22 Unknown History aerosol inhaler (Ventolin HFA) Shortness Of Breath aspirin 81 mg tablet,delayed 81 mg PO DAILY 03/26/22 03/26/22 Unknown History release atorvastatin 40 mg tablet 40 mg PO DAILY 03/26/22 03/26/22 Unknown History diclofenac sodium 1 % topical gel 4 g topical QID PRN Pain 03/26/22 03/26/22 Unknown History (Voltaren Arthritis Pain) diclofenac sodium 50 mg 50 mg PO BID 03/26/22 03/26/22 Unknown History tablet,delayed release divalproex 500 mg tablet,extended 1,000 mg PO BEDTIME 03/26/22 03/26/22 Unknown History release 24 hr docusate sodium 100 mg capsule 100 mg PO DAILY 03/26/22 03/26/22 Unknown History ergocalciferol (vitamin D2) 1,250 50,000 unit PO Q7D 03/26/22 03/26/22 Unknown History mcg (50,000 unit) capsule loratadine 10 mg tablet 10 mg PO DAILY 03/26/22 03/26/22 Unknown History magnesium oxide 400 mg (241.3 mg 400 mg PO BID 03/26/22 03/26/22 Unknown History magnesium) tablet montelukast 10 mg tablet 10 mg PO DAILY 03/26/22 03/26/22 Unknown History omeprazole 20 mg capsule,delayed 20 mg PO BID 03/26/22 03/26/22 Unknown History release Allergies Allergy/AdvReac Type Severity Reaction Status Date / Time No Known Allergies Allergy Verified 12/18/21 13:41 PFSH Acute PFSH: Medical History ASHD (arteriosclerotic heart disease) Constipation Epilepsy Hyperlipidemia Major depressive disorder, recurrent, in remission Major depressive disorder, recurrent, in remission, unspecified Other schizophrenia Paranoid schizophrenia Psychiatric care Psychiatric care Vitamin D deficiency Surgical History History of back surgery (~1993) Hx of arthroscopy of left knee (~2006) Hx of arthroscopy of right knee (1994) Hx of colonoscopy (~2017) recheck 3 yrs Hx of hemorrhoidectomy (~1991) Family History Family/Other Hyperlipidemia Hypertension Stroke Other Cancer Diabetes Social History Smoking and tobacco status: never smoked Second hand smoke exposure: No Alcohol intake: never Adopted: No Caregiver/support person: Yes (brother) Lives independently: Yes Household members: family Marital status: Single service: No Current occupational status: disabled History of recent travel: No Current gender identity: Male Alissa/Yazdanism: Catholic Special alissa needs: No Agree to transfusion: Yes Vitals/I&O/Wt Last Vital Signs Temp 99.1 F 03/26/22 15:00 Pulse 78 03/26/22 19:32 Resp 16 03/26/22 19:32 BP 115/68 03/26/22 15:17 Pulse Ox 95 03/26/22 19:32 O2 Del Method 03/26/22 15:17 Weight last 48 hrs Weight 102.058 kg Physical Exam Const: COMMON NORMALS: no acute distress and patient oriented x3 Resp: COMMON NORMALS: normal respiratory effort, No retractions, No use of accessory muscles and clear to auscultation bilaterally AUSCULTATION: clear to auscultation bilaterally Cardio: COMMON NORMALS: regular rate, regular rhythm, S1 normal heart sound present and S2 normal heart sound present RATE: regular rate RHYTHM: regular rhythm HEART SOUNDS: S1 normal heart sound present and S2 normal heart sound present GI: COMMON NORMALS: Normal to inspection, nondistended, normoactive bowel sounds present, Soft to palpation and non-tender Extremity: COMMON NORMALS: no pedal edema Neuro: COMMON NORMALS: patient oriented x3, CN's II-XII intact bilaterally, moves all extremities and no focal motor deficits Data : 03/26/22 15:35 03/26/22 15:35 Micro: Microbiology 03/26/22 15:56 Blood Culture - Preliminary Blood SPECIMEN COLLECTED 03/26/22 15:50 Blood Culture - Preliminary Blood SPECIMEN COLLECTED A&P Assessment and plan (1) Pyelonephritis: Status: Acute (2) UTI (urinary tract infection): Status: Acute (3) Acute kidney injury: Status: Acute Plan Pyelonephritis, with cystitis -CT scan no evidence of nephrolithiasis -Continue Rocephin -Follow urine cultures, blood cultures -Tylenol for fevers -Lovenox for DVT prophylaxis -Full code Acute kidney injury, secondary to dehydration, pyelonephritis, continue IV fluids History of elevated blood sugar, A1c Attestations Medical Necessity Statement*: Patient requires hospitalization, outpatient with observation, for pyelonephritis, JODY Coding Level of Care Code Acute Aviation Safety Officer for [facility] Diagnoses Pyelonephritis N12 UTI (urinary tract infection) N39.0 Acute kidney injury N17.9
[2022-03-26 20:35] LABS: Thyroid Stimulating Hormone 3.64 uIU/mL (0.27-4.20)
[2022-03-26 20:40] LABS: Estmated Average Glucose 105; Hemoglobin A1C 5.3 % (4.0-6.0)
[2022-03-26] MEDS: divalproex ER 500 mg Tablet (24H) 1000 MG PO (21:30)
[2022-03-26] MEDS: sertraline 100 mg Tablet PO (21:30)
[2022-03-26] MEDS: sodium chloride 0.9% 1,000 ML 75 ML IV (21:30)
[2022-03-26] MEDS: enoxaparin 40 mg/0.4 mL Syringe SUBCUT (21:30)
[2022-03-27] VITALS (9 sets, daily range): BP systolic 110–156; BP diastolic 69–84; PULSE 73–82; RESP 16–18; TEMP 36.8–37.7; O2SAT 92–95
[2022-03-27 05:14] LABS: Basophils # 0.1 10^3/uL (0.0-0.1); Basophils % 0.4 %; Eosinophils # 0.1 10^3/uL (0.0-0.8); Eosinophils % 0.7 %; Hematocrit 36.4 % (42.0-52.0); Hemoglobin 11.6 g/dL (11.7-16.6); Lymphocytes # 1.2 10^3/uL (0.8-4.8); Mean Corpuscular HGB Conc 31.9 g/dL (30.0-36.0); Mean Corpuscular Hemoglobin 29.3 pg (28.0-34.0); Mean Corpuscular Volume 91.9 fl (80-94); Monocytes # 1.2 10^3/uL (0.2-0.9); Monocytes % 7.5 %; Neutrophils # 12.73 10^3/uL (1.8-7.7); Neutrophils % 82.7 %; Nucleated Red Blood Cells % 0 %; Platelet Count 135 10^3/cmm (130-400); Red Blood Count 3.96 10^6/uL (4.1-5.3); White Blood Count 15.4 10^3/uL (4.0-10.0)
[2022-03-27 05:40] LABS: Alanine Aminotransferase 17 U/L (0-41); Albumin Level 3.2 g/dL (3.5-5.2); Alkaline Phosphatase 59 IU/L (40-130); Anion Gap 13.5 (5-19); Aspartate Amino Transferase 19 U/L (0-40); Blood Urea Nitrogen 21 mg/dL (8-23); Calcium 8.3 mg/dL (8.5-10.5); Carbon Dioxide 23 mmol/L (22-29); Chloride 107 mmol/L (98-107); Glomerular Filtration Rate 66.6 mL/min (90-130); Glucose 108 mg/dL (65-115); Magnesium 1.9 mg/dL (1.7-2.3); Osmolality Calculated 294 mOsm/kg (285-295); Phosphorus 2.4 mg/dL (2.5-4.5); Potassium 3.5 mmol/L (3.5-5.1); Sodium 140 mmol/L (136-145); Total Bilirubin 0.8 mg/dL (0.15-1.2); Total Protein 6.2 g/dL (6.6-8.7)
[2022-03-27 05:45] LABS: Procalcitonin 0.62 ng/mL (0-0.5)
[2022-03-27] MEDS: loratadine 10 mg Tablet PO (09:04)
[2022-03-27] MEDS: aspirin 81 mg EC Tablet PO (09:04)
[2022-03-27] MEDS: pantoprazole DR 40 mg Tablet PO (09:04)
[2022-03-27] MEDS: magnesium oxide 400 mg tablet PO ×2 (09:04→18:00)
[2022-03-27] MEDS: docusate sodium 100 mg Capsule PO (09:04)
[2022-03-27] MEDS: montelukast sodium 10 mg Tablet PO (09:04)
[2022-03-27] MEDS: atorvastatin 40 mg Tablet PO (09:04)
[2022-03-27] MEDS: propranolol 20 mg Tablet 30 MG PO ×2 (10:34→19:41)
[2022-03-27] MEDS: paliperidone ER 3 mg Tablet 9 MG PO (10:34)
[2022-03-27] MEDS: sodium chloride 0.9% 1,000 ML 75 ML IV ×2 (10:35→19:41)
--- NOTE | 2022-03-27 13:35 | PM.PN ---
Subjective Subjective: Admitted overnight. No acute events. Has remained afebrile. States feeling better but still having slight flank pain. Vitals/I&O/Wt Last Vital Signs Temp 98.2 F 03/27/22 11:37 Pulse 78 03/27/22 11:37 Resp 16 03/27/22 11:37 BP 128/76 03/27/22 11:37 Pulse Ox 92 03/27/22 11:37 O2 Del Method 03/27/22 11:37 03/26/22 03/27/22 03/27/22 22:59 06:59 14:59 Intake Total 1050 / 1050 1341.25 / 1341.25 Output Total 225 / 225 175 / 175 Balance 1050 / 1050 -225 / 825 1166.25 / 1166.25 Weight last 48 hrs Weight 102.058 kg Physical Exam Const: COMMON NORMALS: no acute distress and patient oriented x3 Resp: COMMON NORMALS: normal respiratory effort, No retractions, No use of accessory muscles and clear to auscultation bilaterally AUSCULTATION: clear to auscultation bilaterally Cardio: COMMON NORMALS: regular rate, regular rhythm, S1 normal heart sound present and S2 normal heart sound present RATE: regular rate RHYTHM: regular rhythm HEART SOUNDS: S1 normal heart sound present and S2 normal heart sound present GI: COMMON NORMALS: Normal to inspection, nondistended, normoactive bowel sounds present, Soft to palpation and non-tender PALPATION: Yes Soft to palpation Extremity: COMMON NORMALS: no pedal edema Neuro: COMMON NORMALS: patient oriented x3, CN's II-XII intact bilaterally, moves all extremities and no focal motor deficits Data : 03/27/22 04:48 03/27/22 04:48 Micro: Microbiology 03/26/22 17:03 Urine Culture - Preliminary Urine,Clean Catch Gram Negative Rods 03/26/22 15:56 Blood Culture - Preliminary Blood SPECIMEN COLLECTED 03/26/22 15:50 Blood Culture - Preliminary Blood SPECIMEN COLLECTED A&P Assessment and plan (1) Pyelonephritis: Present on CT scan. History of recurrent UTI and renal stones. No nephrolithiasis on CT scan. Urine culture growing gram-negative rods. Blood cultures so far negative. Continue to follow. Continue with IV ceftriaxone. Keep mean artery pressure 65. Status: Acute (2) UTI (urinary tract infection): Status: Acute (3) Acute kidney injury: Secondary dehydration and sepsis. Resolved. Continue with gentle IV hydration. Monitor BMP daily. Reconciliation done for nephrotoxic drugs. Status: Acute Plan Continue other chronic medications. Full code. Regular diet. Lovenox for DVT prophylaxis Protonix OPD prophylaxis Attestations Medical Necessity Statement*: Mateo Thomas is being changed to inpatient status as stay will now exceed 2 midnights. Ongoing hospital care is necessary for treatment of pyelonephritis, resolving acute kidney injury Time Spent in Patient Care: Greater than 35 minutes Coding Level of Care Code Acute Virtual Reality Specialist for [facility] Fwd Diagnoses Pyelonephritis N12 UTI (urinary tract infection) N39.0 Acute kidney injury N17.9
[2022-03-27 14:12] LABS: Iron 40 ug/dL (59-158); Percent Saturation 21.2 % (20-50); Total Iron Binding Capacity 188 mcg/dl; Unsaturated Iron Binding 148 ug/dL (112-347)
[2022-03-27 14:18] LABS: Thyroid Stimulating Hormone 3.45 uIU/mL (0.27-4.20)
[2022-03-27] MEDS: cefTRIAXone 1,000 MG in sodium chloride 0.9% (plus) 50 ML 100 MG IV (18:00)
[2022-03-27] MEDS: divalproex ER 500 mg Tablet (24H) 1000 MG PO (19:40)
[2022-03-27] MEDS: enoxaparin 40 mg/0.4 mL Syringe SUBCUT (19:41)
[2022-03-27] MEDS: sertraline 100 mg Tablet PO (19:41)
--- NOTE | 2022-03-27 21:49 | PC.NURSE ---
Unable to measure urine output at all times. Patient spills urinal at times and goes in brief at times.
[2022-03-28] VITALS (12 sets, daily range): BP systolic 106–196; BP diastolic 54–83; PULSE 50–82; RESP 16–18; TEMP 36.6–37.4; O2SAT 91–97
[2022-03-28 04:49] LABS: Basophils % 0.5 %; Eosinophils # 0.1 10^3/uL (0.0-0.8); Eosinophils % 1.5 %; Hematocrit 34.8 % (42.0-52.0); Hemoglobin 11.2 g/dL (11.7-16.6); Mean Corpuscular HGB Conc 32.2 g/dL (30.0-36.0); Mean Corpuscular Hemoglobin 29.6 pg (28.0-34.0); Mean Corpuscular Volume 91.8 fl (80-94); Mean Platelet Volume 11.1 fL (7.4-10.4); Monocytes # 0.8 10^3/uL (0.2-0.9); Monocytes % 10.1 %; Neutrophils # 6.23 10^3/uL (1.8-7.7); Neutrophils % 75.5 %; Nucleated Red Blood Cells % 0 %; Platelet Count 137 10^3/cmm (130-400); Red Blood Count 3.79 10^6/uL (4.1-5.3); Red Cell Distribution Width 13.8 % (12.1-15.1); White Blood Count 8.2 10^3/uL (4.0-10.0)
[2022-03-28 05:23] LABS: Alanine Aminotransferase 37 U/L (0-41); Albumin Level 3.2 g/dL (3.5-5.2); Alkaline Phosphatase 70 IU/L (40-130); Anion Gap 14.6 (5-19); Aspartate Amino Transferase 31 U/L (0-40); Blood Urea Nitrogen 23 mg/dL (8-23); Calcium 8.4 mg/dL (8.5-10.5); Carbon Dioxide 22 mmol/L (22-29); Chloride 110 mmol/L (98-107); Cholesterol 112 mg/dL (0-200); Creatinine Clr Calc Pharmacy 87.3832; Glomerular Filtration Rate 74.3 mL/min (90-130); Glucose 99 mg/dL (65-115); HDL Cholesterol 28 mg/dL (60-100); LDL Cholesterol Calculated 61 mg/dL (50-129); Magnesium 2.3 mg/dL (1.7-2.3); Osmolality Calculated 300 mOsm/kg (285-295); Phosphorus 2.4 mg/dL (2.5-4.5); Potassium 3.6 mmol/L (3.5-5.1); Sodium 143 mmol/L (136-145); Total Bilirubin 0.4 mg/dL (0.15-1.2); Total Protein 6.2 g/dL (6.6-8.7); Triglycerides 113 mg/dL (0-150); VLDL Cholestrol Calculation 23 mg/dL (0-30)
[2022-03-28] MEDS: paliperidone ER 3 mg Tablet 9 MG PO (09:00)
[2022-03-28] MEDS: montelukast sodium 10 mg Tablet PO (09:00)
[2022-03-28] MEDS: atorvastatin 40 mg Tablet PO (09:00)
[2022-03-28] MEDS: magnesium oxide 400 mg tablet PO ×2 (09:00→17:14)
[2022-03-28] MEDS: loratadine 10 mg Tablet PO (09:00)
[2022-03-28] MEDS: docusate sodium 100 mg Capsule PO (09:03)
[2022-03-28] MEDS: pantoprazole DR 40 mg Tablet PO (09:04)
[2022-03-28] MEDS: aspirin 81 mg EC Tablet PO (09:04)
[2022-03-28] MEDS: propranolol 20 mg Tablet 30 MG PO (10:27)
--- NOTE | 2022-03-28 12:47 | P.PN_ITS ---
Subjective Subjective: No acute events overnight. Patient denies any nausea, vomiting, headache. States flank pain is better. Has remained hemodynamically stable and afebrile. Vitals/I&O/Wt Last Vital Signs Temp 97.8 F 03/28/22 12:00 Pulse 70 03/28/22 12:00 Resp 16 03/28/22 12:00 BP 133/72 03/28/22 12:00 Pulse Ox 94 03/28/22 12:00 O2 Del Method 03/28/22 12:00 03/27/22 03/28/22 03/28/22 22:59 06:59 14:59 Intake Total 1032.5 / 2613.75 1600 / 1600 Output Total 250 / 425 325 / 750 Balance 782.5 / 2188.75 -325 / 1863.75 1600 / 1600 Weight last 48 hrs Weight 102.058 kg Physical Exam Const: COMMON NORMALS: no acute distress and patient oriented x3 Resp: COMMON NORMALS: normal respiratory effort, No retractions, No use of ac cessory muscles and clear to auscultation bilaterally AUSCULTATION: clear to auscultation bilaterally Cardio: COMMON NORMALS: regular rate, regular rhythm, S1 normal heart sound present and S2 normal heart sound present RATE: regular rate RHYTHM: regular rhythm HEART SOUNDS: S1 normal heart sound present and S2 normal heart sound present GI: COMMON NORMALS: Normal to inspection, nondistended, normoactive bowel sounds present, Soft to palpation and non-tender PALPATION: Yes Soft to palpation Extremity: COMMON NORMALS: no pedal edema Neuro: COMMON NORMALS: patient oriented x3, CN's II-XII intact bilaterally, moves all extremities and no focal motor deficits Data : 03/28/22 04:29 03/28/22 04:29 Micro: Microbiology 03/26/22 17:03 Urine Culture - Final Urine,Clean Catch Klebsiella oxytoca 03/26/22 15:56 Blood Culture - Preliminary Blood NEGATIVE TO DATE 03/26/22 15:50 Blood Culture - Preliminary Blood NEGATIVE TO DATE A&P Assessment and plan (1) Pyelonephritis: Present on CT scan. History of recurrent UTI and renal stones. No nephrolithiasis on CT scan. Urine culture growing gram-negative rods. Blood cultures so far negative. Continue to follow. Continue with IV ceftriaxone. Keep mean artery pressure 65. Status: Acute (2) UTI (urinary tract infection): Status: Acute (3) Acute kidney injury: Secondary dehydration and sepsis. Resolved. Continue with gentle IV hydration. Monitor BMP daily. Reconciliation done for nephrotoxic drugs. Status: Acute Plan Continue other chronic medications. Full code. Regular diet. Lovenox for DVT prophylaxis Protonix OPD prophylaxis Plan for the day: Urine culture positive for Klebsiella oxytocin. Sensitivities appreciated. Continue with IV ceftriaxone. Most likely can be discharged within next 24 hours if blood cultures remain negative on oral Levaquin for overall 10-day course of antibiotics. Continue to monitor blood cultures. JODY resolved. Patient eating well. Stop IV fluids. Monitor BMP daily. Attestations Medical Necessity Statement*: Requires further hospitalization for management of pyelonephritis secondary to Klebsiella Time Spent in Patient Care: 16 - 35 minutes Coding Level of Care Code Acute Solar Electric Practitioner for [facility] Diagnoses Pyelonephritis N12 UTI (urinary tract infection) N39.0 Acute kidney injury N17.9
[2022-03-28] MEDS: cefTRIAXone 1,000 MG in sodium chloride 0.9% (plus) 50 ML 100 MG IV (17:13)
[2022-03-28] MEDS: divalproex ER 500 mg Tablet (24H) 1000 MG PO (20:55)
[2022-03-28] MEDS: enoxaparin 40 mg/0.4 mL Syringe SUBCUT (20:55)
[2022-03-28] MEDS: sertraline 100 mg Tablet PO (20:55)
[2022-03-29] VITALS (7 sets, daily range): BP systolic 136–164; BP diastolic 76–88; PULSE 50–70; RESP 18–20; TEMP 36.8–37; O2SAT 94–95
[2022-03-29] MEDS: propranolol 20 mg Tablet 30 MG PO ×2 (00:58→09:58)
[2022-03-29 03:06] LABS: Basophils # 0.1 10^3/uL (0.0-0.1); Basophils % 1.4 %; Eosinophils # 0.3 10^3/uL (0.0-0.8); Eosinophils % 5.2 %; Hematocrit 35.7 % (42.0-52.0); Hemoglobin 11.4 g/dL (11.7-16.6); Lymphocytes # 1.3 10^3/uL (0.8-4.8); Lymphocytes % 23.2 %; Mean Corpuscular HGB Conc 31.9 g/dL (30.0-36.0); Mean Corpuscular Hemoglobin 29.9 pg (28.0-34.0); Mean Corpuscular Volume 93.7 fl (80-94); Mean Platelet Volume 10.9 fL (7.4-10.4); Monocytes # 0.9 10^3/uL (0.2-0.9); Monocytes % 15.3 %; Neutrophils # 3.02 10^3/uL (1.8-7.7); Neutrophils % 54.4 %; Nucleated Red Blood Cells % 0 %; Platelet Count 154 10^3/cmm (130-400); Red Blood Count 3.81 10^6/uL (4.1-5.3); Red Cell Distribution Width 13.5 % (12.1-15.1); White Blood Count 5.6 10^3/uL (4.0-10.0)
[2022-03-29 03:36] LABS: Alanine Aminotransferase 98 U/L (0-41); Albumin Level 2.9 g/dL (3.5-5.2); Alkaline Phosphatase 66 IU/L (40-130); Anion Gap 14.4 (5-19); Aspartate Amino Transferase 58 U/L (0-40); Blood Urea Nitrogen 18 mg/dL (8-23); Calcium 8.4 mg/dL (8.5-10.5); Carbon Dioxide 21 mmol/L (22-29); Chloride 109 mmol/L (98-107); Globulin 3.2 g/dL (1.3-4.6); Glomerular Filtration Rate 83.9 mL/min (90-130); Glucose 119 mg/dL (65-115); Magnesium 2.2 mg/dL (1.7-2.3); Osmolality Calculated 295 mOsm/kg (285-295); Phosphorus 3.2 mg/dL (2.5-4.5); Potassium 3.4 mmol/L (3.5-5.1); Sodium 141 mmol/L (136-145); Total Bilirubin 0.2 mg/dL (0.15-1.2); Total Protein 6.1 g/dL (6.6-8.7)
[2022-03-29] MEDS: loratadine 10 mg Tablet PO (09:04)
[2022-03-29] MEDS: pantoprazole DR 40 mg Tablet PO (09:04)
[2022-03-29] MEDS: atorvastatin 40 mg Tablet PO (09:04)
[2022-03-29] MEDS: paliperidone ER 3 mg Tablet 9 MG PO (09:04)
[2022-03-29] MEDS: docusate sodium 100 mg Capsule PO (09:04)
[2022-03-29] MEDS: magnesium oxide 400 mg tablet PO (09:04)
[2022-03-29] MEDS: aspirin 81 mg EC Tablet PO (09:04)
[2022-03-29] MEDS: montelukast sodium 10 mg Tablet PO (09:04)
--- NOTE | 2022-03-29 10:37 | PC.CHAP ---
Pastoral Care Encounter/Spiritual Assessment Type of Contact [] Declined ship fastener visit [] Patient/Family/Request visit [] Outpatient visit [] Follow-up visit [] Physician referral [] Code/Alert [x] Routine visit [] Staff referral [] Actively dying [] Patient sleeping [] Family support [] [] Out of room [] Palliative care [] [] Receiving care in room [] Pre-surgical visit [] Trauma [] Long length of stay [] ICU visit [] Other: Relational/Emotional Strength [x] Patient feels connected with others/family/visitors/staff [] Distress [] Loneliness/isolation [] Abandonment Spirituality of Patient [x] Person of Alissa [] Attends Confucianist of their Alissa [x] Believes in Prayer [] Reads Bible or Mandaen materials [] There are Spiritual issues to be addressed [employer] Interventions [x] Prayer [x] Active listening [x] Non-anxious presence [] Spiritual/emotional support [] Crisis/trauma care [] Spiritual counseling [] Bereavement support [] Provided bereavement packet [] Provided Bible/devotional materials [] Provided toy/stuffed animal, coloring book to patient or family member [] Provided Communion [] Anointing/[place] [] Salvation [x] Completed spiritual assessment [] Other: Impact on Illness or Injury [] Angry [] Fearful [] Anxious [] Often cries [] Exhaustion [] Unable to work [] Unable to attend jain [] Unable to walk/stand [] Unable to read [] Unable to drive [] Unable to eat/drink [] Unable to sleep [] Unable to be with family [] Patient intubated [] Other: Summary Time spent with patient 10 min
--- NOTE | 2022-03-29 13:58 | PC.NURSE ---
Discharge Note Patient discharged to [home] via [wheelchair] accompanied by [brother]. Discharge instructions reviewed with patient and/or internet sales representative. Mobile pharmacy medications and/or prescriptions provided. Belongings/home medications returned.
--- NOTE | 2022-03-29 18:02 | P.DS_ITS ---
Discharge Providers Date of Admission: 03/27/22 13:38 Date of Discharge: March 29, 2022 Attending Provider at Admission: Kaiden Bartlett MD Attending Provider at Discharge: Sukumar Garcia DO Primary Care Provider: GUERRERO Lockhart Diagnoses at Discharge Discharge Diagnosis (1) Pyelonephritis: Status: Acute (2) UTI (urinary tract infection): Status: Acute Qualifiers: Urinary tract infection type: acute cystitis Hematuria presence: wit hout hematuria Qualified Code(s): N30.00 - Acute cystitis without hematuria (3) Acute kidney injury: Status: Acute Reason for Visit Reason for Visit: KIDNEY STONES Brief History: History of kidney stones and multiple and infections. Please see H&P Hospital Course Hospital Course She was admitted for IV antibiotics and further testing. CT scan showed no kidney stones. He remained on IV antibiotics until Tuesday the . Patient's white count had normalized electrolytes were stable and patient could be changed to p.o. antibiotics. Physical Exam Narrative: Alert slowed mentation slowed speech. No acute distress Obese Heart: Normal rate and rhythm without murmurs clicks gallops or rubs lungs clear to auscultation without wheezes rales or rhonchi Abdomen soft nontender nondistended positive bowel sounds Extremities no clubbing cyanosis or edema Discharge Data Studies Completed and Pending Completed Studies During Hospitalization Category Date Time Status CT abdomen renal stone [CT kidney stone 78287] Stat Cat Scan 03/26/22 15:18 Completed CXRP [XR chest 1V portable [id number]] Stat Exams 03/26/22 15:20 Completed Pending at discharge Category Date Time Status Blood Culture Stat Lab 03/26/22 15:56 Results Radiology Impressions Abdomen/Pelvis CT 03/26/22 15:18 IMPRESSION: 1. Mild hepatomegaly with steatosis. 2. No obstructing urinary calculi. Mild perinephric stranding and possible mild bladder wall thickening. See discussion above. 3. Mildly enlarged prostate. 4. Colonic diverticulosis without acute bowel findings. Somewhat limited exam due to lack of contrast. Chest X-Ray 03/26/22 15:20 IMPRESSION: No acute chest abnormality. Laboratory Results WBC 5.6 10^3/uL (4.0-10.0) 03/29/22 02:51 RBC 3.81 10^6/uL (4.1-5.3) L 03/29/22 02:51 Hgb 11.4 g/dL (11.7-16.6) L 03/29/22 02:51 Hct 35.7 % (42.0-52.0) L 03/29/22 02:51 MCV 93.7 fl (80-94) 03/29/22 02:51 MCH 29.9 pg (28.0-34.0) 03/29/22 02:51 MCHC 31.9 g/dL (30.0-36.0) 03/29/22 02:51 RDW 13.5 % (12.1-15.1) 03/29/22 02:51 Plt Count 154 10^3/cmm (130-400) 03/29/22 02:51 MPV 10.9 fL (7.4-10.4) H 03/29/22 02:51 Neut % (Auto) 54.4 % 03/29/22 02:51 Lymph % (Auto) 23.2 % 03/29/22 02:51 [place] % (Auto) 15.3 % 03/29/22 02:51 Eos % (Auto) 5.2 % 03/29/22 02:51 Baso % (Auto) 1.4 % 03/29/22 02:51 Neut # (Auto) 3.02 10^3/uL (1.8-7.7) 03/29/22 02:51 Lymph # (Auto) 1.3 10^3/uL (0.8-4.8) 03/29/22 02:51 [place]on # (Auto) 0.9 10^3/uL (0.2-0.9) 03/29/22 02:51 Eos # (Auto) 0.3 10^3/uL (0.0-0.8) 03/29/22 02:51 Baso # (Auto) 0.1 10^3/uL (0.0-0.1) 03/29/22 02:51 Nucleated RBC % (auto) 0 % 03/29/22 02:51 Nucleated RBCs # 0.0 /100WBC 03/29/22 02:51 Sodium 141 mmol/L (136-145) 03/29/22 02:51 Potassium 3.4 mmol/L (3.5-5.1) L 03/29/22 02:51 Chloride 109 mmol/L (98-107) H 03/29/22 02:51 Carbon Dioxide 21 mmol/L (22-29) L 03/29/22 02:51 Anion Gap 14.4 (5-19) 03/29/22 02:51 BUN 18 mg/dL (8-23) 03/29/22 02:51 Creatinine 0.9 mg/dL (0.7-1.2) 03/29/22 02:51 GFR Calculation 83.9 mL/min (90-130) L 03/29/22 02:51 Glucose 119 mg/dL (65-115) H 03/29/22 02:51 Estimat Average Glucose 105 03/26/22 15:35 Hemoglobin A1c 5.3 % (4.0-6.0) 03/26/22 15:35 Calculated Osmolality 295 mOsm/kg (285-295) 03/29/22 02:51 Lactic Acid 2.3 mmol/L (0.5-2.2) H 03/26/22 15:35 Lactic Acid (Sepsis) 1.8 mmol/L (0.5-2.2) 03/26/22 17:56 Calcium 8.4 mg/dL (8.5-10.5) L 03/29/22 02:51 Phosphorus 3.2 mg/dL (2.5-4.5) 03/29/22 02:51 Magnesium 2.2 mg/dL (1.7-2.3) 03/29/22 02:51 Iron 40 ug/dL (59-158) L 03/27/22 04:48 TIBC 188 mcg/dl 03/27/22 04:48 % Saturation 21.2 % (20-50) 03/27/22 04:48 Unsat Iron Binding 148 ug/dL (112-347) 03/27/22 04:48 Total Bilirubin 0.2 mg/dL (0.15-1.2) 03/29/22 02:51 AST 58 U/L (0-40) H 03/29/22 02:51 ALT 98 U/L (0-41) H 03/29/22 02:51 Alkaline Phosphatase 66 IU/L (40-130) 03/29/22 02:51 Total Protein 6.1 g/dL (6.6-8.7) L 03/29/22 02:51 Albumin 2.9 g/dL (3.5-5.2) L 03/29/22 02:51 Globulin 3.2 g/dL (1.3-4.6) 03/29/22 02:51 Triglycerides 113 mg/dL (0-150) 03/28/22 04:29 Cholesterol 112 mg/dL (0-200) 03/28/22 04:29 LDL Cholesterol, Calc 61 mg/dL (50-129) 03/28/22 04:29 Total VLDL Cholesterol 23 mg/dL (0-30) 03/28/22 04:29 HDL Cholesterol 28 mg/dL (60-100) L 03/28/22 04:29 Cholesterol/HDL Ratio 4.00 mg/dL (1.0-5.00) 03/28/22 04:29 Lipase 11 U/L (13-60) L 03/26/22 15:35 Procalcitonin 0.62 ng/mL (0-0.5) H 03/27/22 04:48 TSH 3.45 uIU/mL (0.27-4.20) 03/27/22 04:48 Urine Color [place] (Yellow) 03/26/22 17:03 Urine Appearance Cloudy (CLEAR) A 03/26/22 17:03 Urine pH 5 (5-7) 03/26/22 17:03 Ur Specific [place] 1.025 (1.005-1.030) 03/26/22 17:03 Urine Protein 3+ (Negative) H 03/26/22 17:03 Urine Glucose (UA) Norm (Normal) 03/26/22 17:03 Urine Ketones 1+ (Negative) H 03/26/22 17:03 Urine Blood 3+ (Negative) H 03/26/22 17:03 Urine Nitrate Positive (Negative) H 03/26/22 17:03 Urine Bilirubin 1+ (Negative) H 03/26/22 17:03 Urine Urobilinogen 1 mg/dL (Negative) H 03/26/22 17:03 Ur Leukocyte Esterase 2+ (Negative) H 03/26/22 17:03 Urine RBC 10-15 /hpf (0-2) H 03/26/22 17:03 Urine WBC Too numerous to cnt /hpf (0-5) H 03/26/22 17:03 Ur Squamous Epith Cells 0-4 /hpf (0-5) H 03/26/22 17:03 Amorphous Sediment Not Reportable 03/26/22 17:03 Urine Bacteria 2+ /hpf (NONE) H 03/26/22 17:03 Vitals Last Vital Signs Temp 98.6 F 03/29/22 13:00 Pulse 70 03/29/22 13:00 Resp 18 03/29/22 13:00 BP 150/88 03/29/22 13:00 Pulse Ox 94 03/29/22 13:00 O2 Del Method 03/29/22 12:00 Discharge Plan Discharge Patient Disposition: Home Health Service Condition: Stable Prescriptions: New Cipro 500 mg tablet 500 mg PO BID 5 Days Qty: 10 0RF Continued sertraline 100 mg tablet 100 mg PO Q24H Qty: 30 2RF propranolol [Inderal LA] 60 mg capsule,extended release 24 hr 60 mg PO DAILY Qty: 30 2RF metronidazole 1 % gel See Rx Instructions .ROUTE .COMPLEX Qty: 60 1RF Dose Instruction: APPLY topically TO THE AFFECTED AREA DAILY. Rx Instructions: APPLY topically TO THE AFFECTED AREA DAILY. paliperidone [Invega] 9 mg tablet extended release 24hr 9 mg PO DAILY Qty: 30 2RF aspirin 81 mg tablet,delayed release (DR/EC) 81 mg PO DAILY magnesium oxide 400 mg (241.3 mg magnesium) tablet 400 mg PO BID divalproex 500 mg tablet extended release 24 hr 1,000 mg PO BEDTIME docusate sodium 100 mg capsule 100 mg PO DAILY omeprazole 20 mg capsule,delayed release(DR/EC) 20 mg PO BID montelukast 10 mg tablet 10 mg PO DAILY diclofenac sodium 50 mg tablet,delayed release (DR/EC) 50 mg PO BID ergocalciferol (vitamin D2) 1,250 mcg (50,000 unit) capsule 50,000 unit PO Q7D Ventolin HFA 90 mcg/actuation HFA aerosol inhaler 2 puff inhalation Q6H PRN (Reason: Shortness Of Breath) loratadine 10 mg tablet 10 mg PO DAILY Voltaren Arthritis Pain 1 % gel 4 g topical QID PRN (Reason: Pain) Rx Instructions: apply to single knee, ankle, foot; for foot includes sole/toes/top of foot Changed atorvastatin 40 mg tablet 40 mg PO QPM 30 Days Qty: 30 0RF Discharge Orders: Discharge Order (Routine); Ordered 03/29/22 Ordered By: Sukumar Garcia Other Ambulatory Orders: DME: Walker (Order) Location: None Selected Ordered By: Kaiden Bartlett DME: Walker (Order) Location: None Selected Ordered By: Kaiden Bartlett Referrals: [facility] [Outside] [facility] ([facility]) [Outside] Dafne Torres FNP [Primary Care Provider] - 04/05/22 2:20 pm Discharge Diet: Advance as tolerated Discharge Activity: Increase activity as tolerated Patient Instructions: Ciprofloxacin (By mouth) (Cipro), Urinary Tract Infection in Men (GEN), Pyelonephritis Discharge Attestations Time Spent in Discharge Care*: less than 30 min Quality Metrics Clinical Quality Measures [ No reported AMI, CVA or VTE this stay] Coding Level of Care Code Acute Chg FW DC note Diagnoses Pyelonephritis N12 UTI (urinary tract infection) N30.00 Urinary tract infection type: acute cystitis Hematuria presence: without hematuria Acute kidney injury N17.9
== END 2022-03-29 13:00 | disposition home or self-care (01) | DRG 872 ==
LOC: ER 15:31 → MEDSURG 18:40
PROVIDERS: Family Medicine; Admitting Provider Student in an Organized Health Care Education/Training Program; Emergency Provider Emergency Medicine; PCP Nurse Practitioner Family; Visit Provider Internal Medicine
DX: A41.9 Sepsis, unspecified organism (principal); N12 Tubulo-interstitial nephritis, not specified as acute or chronic; F20.0 Paranoid schizophrenia; N30.00 Acute cystitis without hematuria; N17.9 Acute kidney failure, unspecified; R65.20 Severe sepsis without septic shock; B96.1 Klebsiella pneumoniae [K. pneumoniae] as the cause of diseases classified elsewhere; G40.909 Epilepsy, unspecified, not intractable, without status epilepticus; E78.5 Hyperlipidemia, unspecified; I25.10 Atherosclerotic heart disease of native coronary artery without angina pectoris; K59.00 Constipation, unspecified; E86.0 Dehydration; Z87.442 Personal history of urinary calculi; Z79.82 Long term (current) use of aspirin
CPT/HCPCS: 36415; 71045; 74176; 80053; 80061; 81001; 83036; 83540; 83550; 83605; 83690; 83735; 84100; 84145; 84443; 85025; 87040; 87077; 87086; 87186; 94760; 96365; 96372; 97110; 97161; 97530; 99285; G0378; J0696; J1650; J7030

== ENCOUNTER → 2022-04-07 14:32 | Outpatient (BNVA) | payer MEDICAID, SELFPAY ==
[2021-11-24 08:31] VITALS: BP 130/83; BMI 31.7
== END ==
PROVIDERS: PCP Nurse Practitioner Family; Visit Provider Nurse Practitioner Family
DX: N30.00 Acute cystitis without hematuria (principal)
CPT/HCPCS: 81003; 87086

== ENCOUNTER → 2022-07-02 10:50 | Outpatient (BNVA) | payer MEDICAID, SELFPAY ==
[2021-11-24 08:31] VITALS: BP 130/83; BMI 31.7
== END ==
PROVIDERS: PCP Nurse Practitioner Family; Visit Provider Nurse Practitioner Family
DX: E78.5 Hyperlipidemia, unspecified (principal); R73.9 Hyperglycemia, unspecified; K21.9 Gastro-esophageal reflux disease without esophagitis; E55.9 Vitamin D deficiency, unspecified
CPT/HCPCS: 80053; 80061; 82306; 82607; 83036; 83735; 84443; 85025

== ENCOUNTER → 2022-08-25 15:24 | Outpatient (BNVA) | payer MEDICAID, SELFPAY ==
[2021-11-24 08:31] VITALS: BP 130/83; BMI 31.7
== END ==
PROVIDERS: PCP Nurse Practitioner Family; Visit Provider Nurse Practitioner Family
DX: R10.11 Right upper quadrant pain (principal); K21.9 Gastro-esophageal reflux disease without esophagitis; Z87.440 Personal history of urinary (tract) infections
CPT/HCPCS: 81003

== ENCOUNTER → 2022-08-31 14:19 | Outpatient (BNVA) | payer MEDICAID, SELFPAY ==
[2021-11-24 08:31] VITALS: BP 130/83; BMI 31.7
== END ==
PROVIDERS: PCP Nurse Practitioner Family; Visit Provider Nurse Practitioner Family
DX: J02.9 Acute pharyngitis, unspecified (principal)
CPT/HCPCS: 87071; 87880

== ENCOUNTER 2022-09-07 07:15 | Outpatient (CLI) | payer MEDICAID, SELFPAY ==
[2021-11-24 08:31] VITALS: BP 130/83; BMI 31.7
--- NOTE | 2022-09-07 07:15 | US_ITS ---
WS: [id number] RIGHT UPPER QUADRANT ULTRASOUND HISTORY: R10.11 - Right upper quadrant pain COMPARISON: None available. Liver: 16.3 cm in length. Mildly enlarged liver. The entire liver is not very well visualized. No mas s identified. No bile duct dilatation. Portal Vein: Normal hepatopetal flow with monophasic waveform. Gallbladder: Normally distended gallbladder with no stones or wall thickening. CBD: 0.3 cm Pancreas: Completely obscured by bowel gas. Right kidney: 11.9 cm in length. Normal size and echogenicity. No hydronephrosis or mass. Aorta and IVC: Not well visualized. No ascites. US/US gall bladder [id number] IMPRESSION: 1. Normal gallbladder. 2. Technically difficult evaluation of the RIGHT upper quadrant. Partial visua lization of the liver with only mild enlargement. 3. Pancreas not visualized. 4. No biliary dilatation.
== END 2022-09-07 07:16 | disposition home or self-care (01) ==
LOC: RAD 07:17
PROVIDERS: PCP Nurse Practitioner Family; Visit Provider Nurse Practitioner Family
DX: R10.11 Right upper quadrant pain (principal)
CPT/HCPCS: 76705

== ENCOUNTER → 2022-09-21 13:04 | Outpatient (BNVA) | payer MEDICAID, SELFPAY ==
[2022-09-09 16:50] VITALS: BP 130/83; BMI 31.7
== END ==
PROVIDERS: PCP Nurse Practitioner Family; Visit Provider Nurse Practitioner Family
DX: M25.561 Pain in right knee (principal)
CPT/HCPCS: 72100; 73562

== ENCOUNTER 2022-10-01 16:04 | Emergency (ER) | payer MEDICAID, SELFPAY ==
[2022-09-09 16:50] VITALS: BP 130/83; BMI 31.7
[2022-10-01 16:15] VITALS: BP 115/74; PULSE 71; RESP 16; TEMP 36.6; O2SAT 97; BMI 30.4
--- NOTE | 2022-10-01 17:20 | W.ED.URI ---
HPI - URI/Sore Throat General: Chief Complaint: Upper Respiratory Infection Stated Complaint: cough Time Seen by Provider: 10/01/22 16:33 History of Present Illness: 66-year-old male patient comes in today with some complaints of shortness of breath and persistent cough. Patient does have a history of asthma. Patient was told by his PCP that he might have pertussis and recommend evaluation in the ER. Patient appears nontoxic. Patient appears no pain. Patient has a history of asthma, hyperglycemia, GERD, major depressive disorder, epilepsy, and renal calculi. Associated symptoms: Deny chest pain, fever(s), headache(s) or vomiting Review of Systems Const: Denies: fever(s) ENMT: Reports: other (Hard of hearing chronic); Denies: throat pain Card: Denies: chest pain Resp: Reports: non-productive cough; Denies: dyspnea GI: Denies: vomiting Neuro: Denies: headache(s) PFSH ED PFSH: Medical History ASHD (arteriosclerotic heart disease) Constipation Epilepsy Hyperlipidemia Major depressive disorder, recurrent, in remission Major depressive disorder, recurrent, in remission, unspecified Other schizophrenia Paranoid schizophrenia Psychiatric care Psychiatric care Vitamin D deficiency Surgical History History of back surgery (~1993) Hx of arthroscopy of left knee (~2006) Hx of arthroscopy of right knee (1994) Hx of colonoscopy (~2017) recheck 3 yrs Hx of hemorrhoidectomy (~1991) Family History Family/Other Hyperlipidemia Hypertension Stroke Other Cancer Diabetes Social History Smoking and tobacco status: never smoked Second hand smoke exposure: No Alcohol intake: never Adopted: No Caregiver/support person: Yes (brother) Lives independently: Yes Household members: family Marital status: Single service: No Current occupational status: disabled Current gender identity: Male Alissa/Baptist: Anglican Special alissa needs: No Agree to transfusion: Yes Physical Exam Const: COMMON NORMALS: alert HENMT: COMMON NORMALS: normocephalic HEAD & SCALP: normocephalic MOUTH: Normal oral and palatal mucosa present Neck/C-Spine: COMMON NORMALS: full ROM Resp: COMMON NORMALS: normal respiratory effort AUSCULTATION: wheezes and diminished lung sounds Cardio: COMMON NORMALS: regular rate and regular rhythm RATE: regular rate RHYTHM: regular rhythm GI: COMMON NORMALS: non-tender Extremity: COMMON NORMALS: normal to inspection NARRATIVE EXTREMITY EXAM: Mild lower extremity edema. Neuro: SENSORIUM/ORIENTATION: Yes alert Skin: COMMON NORMALS: turgor normal GENERAL SKIN EXAM: turgor normal Course Vital Signs: Vital signs: Vital Signs Temperature 97.8 F 10/01/22 16:15 Pulse Rate 71 10/01/22 16:15 Respiratory Rate 16 10/01/22 16:15 Blood Pressure 115/74 10/01/22 16:15 Pulse Oximetry 97 10/01/22 16:15 Oxygen Delivery Me thod 10/01/22 16:15 MDM - URI/Sore Throat Medical Decision Making 66-year-old male patient comes in today with complaints of cough and shortness of breath. Patient was diagnosed with possible pertussis by his primary care provider. Patient reports some improvement of symptoms since arriving to the ER. Patient does have a history of asthma. On exam patient has decreased breath sounds with some inspiratory wheezes. Vital signs are normal. Differential diagnosis includes but not limited to exacerbation of asthma, CHF, respiratory failure. No signs of respiratory failure noted at this time. No signs of severe illness or injury is noted. Believe the patient probably at this time has an exacerbation of his asthma. We will dose with dexamethasone and started on some azithromycin. Patient was recommended to follow-up if needed for worsening symptoms such as increasing shortness of breath, chest pain, or fever. Patient reported understanding and agreed to plan. Discharge Plan Discharge Patient Disposition: Home Clinical Impression: Asthma exacerbation Qualifiers: Asthma severity: moderate Asthma persistence: persistent Qualified Code(s): J45.41 - Moderate persistent asthma with (acute) exacerbation Condition: Stable Prescriptions: New azithromycin 250 mg tablet See Rx Instructions .ROUTE .COMPLEX Qty: 6 0RF Rx Instructions: For 250 mg dose pack: take 500 mg today (day 1), then 250 mg for 4 days (days 2-5) dexamethasone 6 mg tablet 6 mg PO DAILY Qty: 5 0RF No Action diclofenac sodium [Voltaren Arthritis Pain] 1 % gel 4 g topical QID PRN (Reason: Pain) Qty: 200 0RF Rx Instructions: apply to knee promethazine-DM 6.25-15 mg/5 mL syrup 5 - 10 ml PO Q6H PRN (Reason: cough) Qty: 200 1RF Adacel(Tdap Adolesn/Adult)(PF) 2 Lf-(2.5-5-3-5 mcg)-5Lf/0.5 mL syringe 0.5 ml IM ONCE Qty: 0.5 0RF metronidazole 1 % gel See Rx Instructions .ROUTE .COMPLEX Qty: 60 1RF Dose Instruction: APPLY topically TO THE AFFECTED AREA DAILY. Rx Instructions: APPLY topically TO THE AFFECTED AREA DAILY. propranolol [Inderal LA] 60 mg capsule,extended release 24 hr 60 mg PO DAILY Qty: 30 2RF pantoprazole 40 mg tablet,delayed release (DR/EC) 40 mg PO DAILY Qty: 30 2RF budesonide-formoterol [Symbicort] 160-4.5 mcg/actuation HFA aerosol inhaler 1 puff inhalation BID Qty: 10.2 0RF docusate sodium 100 mg capsule See Rx Instructions .ROUTE .COMPLEX Qty: 30 5RF Dose Instruction: TAKE ONE CAPSULE BY MOUTH EVERY DAY. Rx Instructions: TAKE ONE CAPSULE BY MOUTH EVERY DAY. atorvastatin 40 mg tablet 40 mg PO QPM 30 Days Qty: 30 4RF loperamide 2 mg capsule 2 mg PO QID PRN (Reason: loose stool) Qty: 30 2RF divalproex 500 mg tablet extended release 24 hr 1,000 mg PO BEDTIME Qty: 60 3RF ergocalciferol (vitamin D2) 1,250 mcg (50,000 unit) capsule See Rx Instructions .ROUTE .COMPLEX Qty: 4 2RF Dose Instruction: TAKE ONE CAPSULE BY MOUTH EVERY 7 DAYS; appointment required FOR refills Rx Instructions: TAKE ONE CAPSULE BY MOUTH EVERY 7 DAYS magnesium oxide 400 mg (241.3 mg magnesium) tablet 400 mg PO BID Qty: 180 1RF diclofenac sodium 50 mg tablet,delayed release (DR/EC) 50 mg PO BID Qty: 60 2RF aspirin 81 mg tablet,delayed release (DR/EC) See Rx Instructions .ROUTE .COMPLEX Qty: 90 5RF Dose Instruction: TAKE ONE TABLET BY MOUTH EVERY DAY Rx Instructions: TAKE ONE TABLET BY MOUTH EVERY DAY paliperidone [Invega] 9 mg tablet extended release 24 hr 9 mg PO DAILY Qty: 30 2RF sertraline 100 mg tablet 100 mg PO Q24H Qty: 30 2RF montelukast 10 mg tablet See Rx Instructions .ROUTE .COMPLEX Qty: 30 3RF Dose Instruction: TAKE ONE TABLET BY MOUTH DAILY Rx Instructions: TAKE ONE TABLET BY MOUTH DAILY Ventolin HFA 90 mcg/actuation HFA aerosol inhaler 2 puff inhalation Q6H PRN (Reason: Shortness Of Breath) loratadine 10 mg tablet 10 mg PO DAILY Discharge Orders: Discharge ED (Routine); Ordered 10/01/22 Ordered By: Michele Aaron Referrals: Dafne Torres FNP [Primary Care Provider] - Discharge Diet: Usual diet Discharge Activity: Increase activity as tolerated Patient Instructions: Asthma (ED) Activity Restrictions/Additional Instructions: Home and rest. Drink plenty of fluids. Take medications as directed patient. Use albuterol inhaler and medications for asthma as directed. Follow-up with primary care in 3 to 5 days for recheck. Return to emergency department for worsening symptoms such as increasing shortness of breath, fever greater than 100.4, or chest pain. Coding Level of Care Code ED Crew Car Driver for Arnoldo Kirby
[2022-10-01] MEDS: dexamethasone 10 mg/mL INJ IM (17:28)
== END 2022-10-01 17:38 | disposition home or self-care (01) ==
PROVIDERS: Emergency Provider Nurse Practitioner Family; PCP Nurse Practitioner Family
DX: J45.41 Moderate persistent asthma with (acute) exacerbation (principal); Z79.82 Long term (current) use of aspirin; E78.5 Hyperlipidemia, unspecified
CPT/HCPCS: 96372; 99284; J1100

== ENCOUNTER → 2022-10-06 17:20 | Outpatient (BNVA) | payer MEDICAID, SELFPAY ==
[2022-09-09 16:50] VITALS: BP 130/83; BMI 31.7
== END ==
PROVIDERS: PCP Nurse Practitioner Family; Visit Provider Nurse Practitioner Family
DX: R05.9 Cough, unspecified (principal)
CPT/HCPCS: 86615; 87486; 87581; 87633

== ENCOUNTER → 2022-10-07 14:42 | Outpatient (BNVA) | payer MEDICAID, SELFPAY ==
[2022-10-07 11:35] VITALS: BP 130/83; BMI 31.7
== END ==
PROVIDERS: PCP Nurse Practitioner Family; Visit Provider Nurse Practitioner Family
DX: R05.9 Cough, unspecified (principal)
CPT/HCPCS: 71046

== ENCOUNTER → 2022-11-10 15:46 | Outpatient (BNVA) | payer MEDICAID, SELFPAY ==
[2022-11-10 10:43] VITALS: BP 130/83; BMI 31.7
== END ==
PROVIDERS: PCP Nurse Practitioner Family; Visit Provider Nurse Practitioner Family
DX: R30.0 Dysuria (principal); H00.012 Hordeolum externum right lower eyelid; Z12.11 Encounter for screening for malignant neoplasm of colon; R10.11 Right upper quadrant pain
CPT/HCPCS: 81000

== ENCOUNTER → 2022-12-13 14:36 | Outpatient (BNVA) | payer MEDICAID, SELFPAY ==
[2022-11-10 10:43] VITALS: BP 130/83; BMI 31.7
== END ==
PROVIDERS: PCP Nurse Practitioner Family; Visit Provider Nurse Practitioner Family
DX: R39.9 Unspecified symptoms and signs involving the genitourinary system (principal); N30.00 Acute cystitis without hematuria
CPT/HCPCS: 81003; 87077; 87086; 87184

== ENCOUNTER → 2022-12-14 15:08 | Outpatient (BNVA) | payer MEDICAID, SELFPAY ==
[2022-11-10 10:43] VITALS: BP 130/83; BMI 31.7
== END ==
PROVIDERS: PCP Nurse Practitioner Family; Visit Provider Surgery
DX: Z86.010 Personal history of colon polyps (principal)
CPT/HCPCS: 99203

== ENCOUNTER → 2022-12-28 10:26 | Outpatient (BNVA) | payer MEDICAID, SELFPAY ==
[2022-11-10 10:43] VITALS: BP 130/83; BMI 31.7
== END ==
PROVIDERS: PCP Nurse Practitioner Family; Visit Provider Specialist
DX: G40.309 Generalized idiopathic epilepsy and epileptic syndromes, not intractable, without status epilepticus (principal); H00.13 Chalazion right eye, unspecified eyelid
CPT/HCPCS: 99213

== ENCOUNTER → 2023-01-21 14:41 | Outpatient (BNVA) | payer MEDICAID, SELFPAY ==
[2023-01-21 10:24] VITALS: BP 130/83; BMI 31.7
== END ==
PROVIDERS: PCP Nurse Practitioner Family; Visit Provider Nurse Practitioner Family
DX: R10.9 Unspecified abdominal pain (principal); K21.9 Gastro-esophageal reflux disease without esophagitis
CPT/HCPCS: 81000

== ENCOUNTER → 2023-01-28 09:15 | Outpatient (BNVA) | payer MEDICAID, SELFPAY ==
[2023-01-21 10:24] VITALS: BP 130/83; BMI 31.7
== END ==
PROVIDERS: PCP Nurse Practitioner Family; Visit Provider Nurse Practitioner Family
DX: R39.9 Unspecified symptoms and signs involving the genitourinary system (principal); F33.40 Major depressive disorder, recurrent, in remission, unspecified; Z12.5 Encounter for screening for malignant neoplasm of prostate; E55.9 Vitamin D deficiency, unspecified; E78.5 Hyperlipidemia, unspecified; R73.9 Hyperglycemia, unspecified; J30.2 Other seasonal allergic rhinitis; K21.9 Gastro-esophageal reflux disease without esophagitis; J45.30 Mild persistent asthma, uncomplicated; G40.309 Generalized idiopathic epilepsy and epileptic syndromes, not intractable, without status epilepticus; L21.9 Seborrheic dermatitis, unspecified
CPT/HCPCS: 80053; 80061; 81000; 82306; 83036; 84443; 85025; G0103

== ENCOUNTER → 2023-03-21 14:40 | Outpatient (BNVA) | payer MEDICAID, SELFPAY ==
[2023-03-21 09:23] VITALS: BP 130/83; BMI 31.7
== END ==
PROVIDERS: PCP Nurse Practitioner Family; Visit Provider Nurse Practitioner Family
DX: N39.0 Urinary tract infection, site not specified (principal)
CPT/HCPCS: 81003; 87086

== ENCOUNTER 2023-03-31 15:02 | Outpatient (CLI) | payer MEDICAID, SELFPAY ==
[2023-03-21 09:23] VITALS: BP 130/83; BMI 31.7
--- NOTE | 2023-03-31 15:18 | XR_ITS ---
WS: [email or web address] Facial bones, 4 views, 03/31/2023 Clinical Data: R51.9 - Headache, unspecified Comparison: Mandible series, 09/08/2018 Findings: No facial fractures are seen. The mandible and maxilla appear intact. The sinuses show no air-fluid l evels or cloudiness. The orbits are normal. Impression: Negative facial bones.
--- NOTE | 2023-03-31 15:18 | XR_ITS ---
WS: [email or web address] Right hip, AP and frog-leg views, 03/31/2023 Clinical Data: M25.551 - Pain in right hip Comparison: None. Findings: No fractures or dislocations are seen. The right hip joint is intact. No right hip erosion, sclerosis , cyst formation or fragmentation of the right femoral head is seen. The soft tissues are not remarka ble. The adjacent pelvis is normal. Impression: Negative right hip.
--- NOTE | 2023-03-31 15:18 | XR_ITS ---
WS: [email or web address] Right knee, 3 views, 03/31/2023 Clinical Data: M25.561 - Pain in right knee Comparison: Right knee, 09/21/2022 Findings: There is medial joint compartment narrowing with sclerosis of the adjacent articular surfaces. There is irregularity of the articular surface of the lateral tibial plateau. The posterior right patella s hows irregularity and prominent spurs. There are no fractures or dislocations. The soft tissues are normal. Impression: Moderate osteoarthritis of the right knee without fracture. Kellgren-Maxwell Classification: grade 3 (moderate): moderate multiple osteophytes, definite narrowi ng of joint space and some sclerosis and possible deformity of bone ends
== END 2023-03-31 15:03 | disposition home or self-care (01) ==
LOC: RAD 15:06
PROVIDERS: PCP Nurse Practitioner Family; Visit Provider Nurse Practitioner Family
DX: R51.9 Headache, unspecified (principal); M17.11 Unilateral primary osteoarthritis, right knee; M25.551 Pain in right hip
CPT/HCPCS: 70150; 73502; 73562

== ENCOUNTER → 2023-08-10 14:35 | Outpatient (BNVA) | payer MEDICAID, SELFPAY ==
[2023-08-10 11:52] VITALS: BP 124/78; BMI 30.8
== END ==
PROVIDERS: PCP Nurse Practitioner Family; Visit Provider Registered Nurse Neonatal Intensive Care
DX: R32 Unspecified urinary incontinence (principal); R30.0 Dysuria; N39.0 Urinary tract infection, site not specified; R31.9 Hematuria, unspecified
CPT/HCPCS: 81000

== ENCOUNTER → 2023-09-01 17:43 | Outpatient (BNVA) | payer MEDICAID, SELFPAY ==
[2023-08-10 11:52] VITALS: BP 124/78; BMI 30.8
== END ==
PROVIDERS: PCP Nurse Practitioner Family; Visit Provider Family Medicine
DX: R35.0 Frequency of micturition (principal); N39.0 Urinary tract infection, site not specified; R31.9 Hematuria, unspecified
CPT/HCPCS: 81003; 87077; 87086; 87184

== ENCOUNTER → 2023-09-22 16:49 | Outpatient (BNVA) | payer MEDICAID, SELFPAY ==
[2023-08-10 11:52] VITALS: BP 124/78; BMI 30.8
== END ==
PROVIDERS: PCP Nurse Practitioner Family; Visit Provider Nurse Practitioner Family
DX: R32 Unspecified urinary incontinence (principal)
CPT/HCPCS: 81003

== ENCOUNTER → 2023-10-11 16:13 | Outpatient (BNVA) | payer MEDICAID, SELFPAY ==
[2023-08-10 11:52] VITALS: BP 124/78; BMI 30.8
== END ==
PROVIDERS: PCP Nurse Practitioner Family; Visit Provider Nurse Practitioner Family
DX: M19.011 Primary osteoarthritis, right shoulder (principal); M25.511 Pain in right shoulder
CPT/HCPCS: 73030

== ENCOUNTER → 2023-12-20 12:31 | Outpatient (BNVA) | payer MEDICAID, SELFPAY ==
[2023-08-10 11:52] VITALS: BP 124/78; BMI 30.8
== END ==
PROVIDERS: PCP Nurse Practitioner Family; Visit Provider Specialist
DX: G40.309 Generalized idiopathic epilepsy and epileptic syndromes, not intractable, without status epilepticus (principal)
CPT/HCPCS: 99213

== ENCOUNTER → 2024-01-11 12:32 | Outpatient (BNVA) | payer OTHER, SELFPAY ==
[2023-08-10 11:52] VITALS: BP 124/78; BMI 30.8
== END ==
PROVIDERS: PCP Nurse Practitioner Family; Visit Provider Nurse Practitioner
DX: Z79.899 Other long term (current) drug therapy (principal)
CPT/HCPCS: 80061; 83036

== ENCOUNTER → 2024-02-06 16:16 | Outpatient (BNVA) | payer MEDICAID, SELFPAY ==
[2024-02-06 09:05] VITALS: BP 110/74; BMI 31.0
== END ==
PROVIDERS: PCP Nurse Practitioner Family; Visit Provider Nurse Practitioner Family
DX: R30.0 Dysuria (principal); N39.0 Urinary tract infection, site not specified; R31.9 Hematuria, unspecified
CPT/HCPCS: 81000; 81003; 87086

== ENCOUNTER 2024-02-13 14:45 | Outpatient (CLI) | payer MEDICAID, SELFPAY ==
[2024-02-06 09:05] VITALS: BP 110/74; BMI 31.0
--- NOTE | 2024-02-13 14:47 | XR_ITS ---
WS: [id number] XR ribs RT 2V* [id number] REASON FOR EXAM: R07.81 - Pleurodynia FINDINGS: Right ribs are intact with no acute fracture identified. Underlying right pleura and right lung are unremarkable. Severe osteoarthritis of the right shoulder joint. XR/XR ribs RT 2V* [id number] IMPRESSION: No acute abnormality.
== END 2024-02-13 14:46 | disposition home or self-care (01) ==
LOC: RAD 14:45
PROVIDERS: PCP Nurse Practitioner Family; Visit Provider Nurse Practitioner Family
DX: R07.81 Pleurodynia (principal); M19.011 Primary osteoarthritis, right shoulder
CPT/HCPCS: 71100

== ENCOUNTER → 2024-05-15 14:12 | Outpatient (BNVA) | payer MEDICAID, SELFPAY ==
[2024-04-24 10:33] VITALS: BP 110/74; BMI 31.0
== END ==
PROVIDERS: PCP Nurse Practitioner Family; Visit Provider Nurse Practitioner Family
DX: R39.9 Unspecified symptoms and signs involving the genitourinary system (principal)
CPT/HCPCS: 81003; 87086

== ENCOUNTER → 2024-06-11 13:37 | Outpatient (BNVA) | payer MEDICAID, SELFPAY ==
[2024-04-24 10:33] VITALS: BP 110/74; BMI 31.0
== END ==
PROVIDERS: PCP Nurse Practitioner Family; Visit Provider Nurse Practitioner Family
DX: N39.0 Urinary tract infection, site not specified (principal); R31.9 Hematuria, unspecified
CPT/HCPCS: 81000; 87086

== ENCOUNTER → 2024-06-13 10:42 | Outpatient (BNVA) | payer MEDICAID, SELFPAY ==
[2024-04-24 10:33] VITALS: BP 110/74; BMI 31.0
== END ==
PROVIDERS: PCP Nurse Practitioner Family; Visit Provider Nurse Practitioner Family
DX: R42 Dizziness and giddiness (principal)
CPT/HCPCS: 85025

== ENCOUNTER → 2024-06-19 14:31 | Outpatient (BNVA) | payer MEDICAID, SELFPAY ==
[2024-04-24 10:33] VITALS: BP 110/74; BMI 31.0
== END ==
PROVIDERS: PCP Nurse Practitioner Family; Visit Provider Nurse Practitioner Family
DX: R31.9 Hematuria, unspecified (principal)
CPT/HCPCS: 81000; 81003; 87086

== ENCOUNTER 2024-06-25 08:00 | Outpatient (CLI) | payer MEDICAID, SELFPAY ==
[2024-04-24 10:33] VITALS: BP 110/74; BMI 31.0
--- NOTE | 2024-06-25 | ECG_ITS ---
[facility] Test Date: 2024-06-25 Pat Name: Mateo Thomas Department: Room: Gender: Male [employer]: : 1955 Requested By: Dafne Torres Order Number: [id number] Aida MD: Abigail Quiroz M.D. Interpretive Statements Lung unchanged pre/post procedure; Intraprocedure shortess of breath; Symptoms resoled by discharge PROCEDURE: At the baseline, the EKG revealed normal sinus rhythm with some nonspecific ST changes.. The baseline heart was 78 bpm with a blood pressue of 120/79 mm of Hg Lexiscan was infused over a period of 20 seconds. A total of 0.4 milligrams of Lexiscan was infused. The stress phase was continued for a total of 5 minutes. Heart rate at the end of the stress phase was 93 bpm with a blood pressure 109/68 mm of Hg. The EKG at the peak infusion revealed nonspecific ST-T changes in the inferior and anterolateral leads.. Sestamibi was injected 20 seconds after the Lexiscan infusion. Heart rate at the end of the recovery phase was 91 bpm with a blood pressure of 106/69 mm of Hg. CONCLUSION: 1. Nonspecific EKG changes with the LexiScan infusion 2. No LexiScan induced chest pain or cardiac arrhythmia 3. Normal blood pressure and heart rate response 4. Sestamibi/sestamibi perfusion scan pending; see separate report. Electronically Signed On 06-30-2024 12:37:44 CRIMINAL JUSTICE PROFESSOR by Abigail Quiroz M.D. [email or web address]
[2024-06-25 08:36] VITALS: BMI 27.1
--- NOTE | 2024-06-25 08:39 | NMCV_ITS ---
NM chip perf SPECT r/s* [id number] Mateo Thomas Age: 68 Gender: M : 1955 Exam Date: 06/25/2024 09:12 Ordering Phys: Dafne Torres PAYROLL ACCOUNTING MANAGER Technologist: CITLALY Brown Exam Location: [facility] Indications: CP STRESS TEST Please see separate stress test report in [facility] for full findings IMAGE PROTOCOL Rest/Stress 1 Lexiscan Day Radiopharmaceutical Dose (mCi) Administration Site Administered by Rest: Tc-99m 10.7 IV CITLALY Langley Sestamibi Stress:Tc-99m 33 IV CITLALY Langley Sestamibi Rest: 25-Jun-2024 60 Discovery 630 Stress: 25-Jun-2024 30 Discovery 630 0.4mg Lexiscan. Supine position only as patient was unable to lay prone. SPECT RESULTS Technical Quality: Good Raw Data Analysis: Normal Image Corrections: No attenuation or motion correction applied Summed Stress Score: 0 Summed Rest Score: 0 Summed Difference Score: 0 PERFUSION FINDINGS Uniform myocardial tracer uptake with no significant Perfusion abnormalities FUNCTIONAL RESULTS (calculated via Gated SPECT) Stress Image LV EF (%): 68 Stress EDV (mL):90 TID: 0.8 Stress ESV (mL):29 FUNCTIONAL FINDINGS: Segmental wall motion analysis revealing no gross wall motion abnormalities IMPRESSIONS 1. Uniform myocardial tracer uptake with no significant Perfusion normalities 2. Normal LV ejection fraction of 68%. 3. LV wall motion analysis revealing no gross wall motion abnormalities. 4. Normal LV volume Low probability for coronary ischemia, based on the above findings No similar previous studies are available for comparison Dr Abigail Quiroz MD [facility] (Electronically Signed) Final Date: 25 June 2024 14:23 S
[2024-06-25] MEDS: regadenoson 0.4 Mg/5 ml Syringe IVP (09:59)
[2024-06-25 10:06] VITALS: BP 106/69; PULSE 91
== END 2024-06-25 08:01 | disposition home or self-care (01) ==
PROVIDERS: PCP Nurse Practitioner Family; Visit Provider Nurse Practitioner Family
DX: R07.9 Chest pain, unspecified (principal); R06.02 Shortness of breath
CPT/HCPCS: 36415; 78452; 93017; 96374; A9500; J2785

== ENCOUNTER → 2024-07-05 14:03 | Outpatient (BNVA) | payer MEDICAID, SELFPAY ==
[2024-04-24 10:33] VITALS: BP 110/74; BMI 31.0
== END ==
PROVIDERS: PCP Nurse Practitioner Family; Visit Provider Nurse Practitioner Family
DX: R19.7 Diarrhea, unspecified (principal)
CPT/HCPCS: 87324; 87493

== ENCOUNTER → 2024-07-24 13:24 | Outpatient (BNVA) | payer MEDICAID, SELFPAY ==
[2024-04-24 10:33] VITALS: BP 110/74; BMI 31.0
== END ==
PROVIDERS: PCP Nurse Practitioner Family; Visit Provider Nurse Practitioner Family
DX: N39.0 Urinary tract infection, site not specified (principal)
CPT/HCPCS: 81000; 87077; 87086; 87184

== ENCOUNTER → 2024-09-18 14:00 | Outpatient (BNVA) | payer MEDICAID, SELFPAY ==
[2024-04-24 10:33] VITALS: BP 110/74; BMI 31.0
== END ==
PROVIDERS: PCP Nurse Practitioner Family; Referring Provider Nurse Practitioner Family; Visit Provider Nurse Practitioner Family
DX: L21.8 Other seborrheic dermatitis (principal); D23.39 Other benign neoplasm of skin of other parts of face; L81.4 Other melanin hyperpigmentation; L57.8 Other skin changes due to chronic exposure to nonionizing radiation
CPT/HCPCS: 99203

== ENCOUNTER → 2024-10-22 15:06 | Outpatient (BNVA) | payer MEDICAID, SELFPAY ==
[2024-04-24 10:33] VITALS: BP 110/74; BMI 31.0
== END ==
PROVIDERS: PCP Nurse Practitioner Family; Visit Provider Nurse Practitioner Family
DX: R30.0 Dysuria (principal); R73.9 Hyperglycemia, unspecified; E78.5 Hyperlipidemia, unspecified
CPT/HCPCS: 80053; 80061; 81003; 82306; 83036; 84443; 85025; 87086; G0103

== ENCOUNTER → 2024-10-31 15:18 | Outpatient (BNVA) | payer MEDICAID, SELFPAY ==
[2024-04-24 10:33] VITALS: BP 110/74; BMI 31.0
== END ==
PROVIDERS: PCP Nurse Practitioner Family; Visit Provider Nurse Practitioner Family
DX: R73.9 Hyperglycemia, unspecified (principal); E78.5 Hyperlipidemia, unspecified
CPT/HCPCS: 80053; 80061; 82306; 84443; G0103

== ENCOUNTER → 2024-11-19 14:37 | Outpatient (BNVA) | payer MEDICAID, SELFPAY ==
[2024-11-02 09:31] VITALS: BP 130/70; BMI 31.4
== END ==
PROVIDERS: PCP Nurse Practitioner Family; Visit Provider Nurse Practitioner Family
DX: L21.8 Other seborrheic dermatitis (principal); D23.39 Other benign neoplasm of skin of other parts of face; L57.8 Other skin changes due to chronic exposure to nonionizing radiation
CPT/HCPCS: 99214

== ENCOUNTER → 2024-12-13 13:39 | Outpatient (BNVA) | payer MEDICAID, SELFPAY ==
[2024-11-02 09:31] VITALS: BP 130/70; BMI 31.4
== END ==
PROVIDERS: PCP Nurse Practitioner Family; Visit Provider Nurse Practitioner Family
DX: R30.0 Dysuria (principal); N39.0 Urinary tract infection, site not specified
CPT/HCPCS: 81003; 87077; 87086; 87184

== ENCOUNTER → 2025-01-10 11:35 | Outpatient (BNVA) | payer MEDICAID, SELFPAY ==
[2025-01-08 12:49] VITALS: BP 130/70; BMI 31.4
== END ==
PROVIDERS: PCP Nurse Practitioner Family; Visit Provider Nurse Practitioner Family
DX: M17.11 Unilateral primary osteoarthritis, right knee (principal)
CPT/HCPCS: 73562

== ENCOUNTER → 2025-01-31 16:38 | Outpatient (BNVA) | payer MEDICAID, SELFPAY ==
[2025-01-31 13:14] VITALS: BP 130/70; BMI 31.4
== END ==
PROVIDERS: PCP Nurse Practitioner Family; Visit Provider Nurse Practitioner Family
DX: R39.9 Unspecified symptoms and signs involving the genitourinary system (principal)
CPT/HCPCS: 81003; 87086

== ENCOUNTER → 2025-02-05 11:03 | Outpatient (BNVA) | payer MEDICAID, SELFPAY ==
[2025-01-31 13:14] VITALS: BP 130/70; BMI 31.4
== END ==
PROVIDERS: PCP Nurse Practitioner Family; Visit Provider Nurse Practitioner Family
DX: R39.9 Unspecified symptoms and signs involving the genitourinary system (principal)
CPT/HCPCS: 81003; 87086

== ENCOUNTER → 2025-04-17 08:29 | Outpatient (BNVA) | payer MEDICAID, SELFPAY ==
[2025-01-31 13:14] VITALS: BP 130/70; BMI 31.4
== END ==
PROVIDERS: PCP Nurse Practitioner Family; Visit Provider Nurse Practitioner Family
DX: R10.11 Right upper quadrant pain (principal); E78.5 Hyperlipidemia, unspecified; N39.0 Urinary tract infection, site not specified
CPT/HCPCS: 80053; 80061; 81000; 82306; 82607; 84443; 85025

== ENCOUNTER → 2025-04-24 15:22 | Outpatient (BNVA) | payer MEDICAID, SELFPAY ==
[2025-01-31 13:14] VITALS: BP 130/70; BMI 31.4
== END ==
PROVIDERS: PCP Nurse Practitioner Family; Visit Provider Nurse Practitioner Family
DX: R73.9 Hyperglycemia, unspecified (principal)
CPT/HCPCS: 83036

== ENCOUNTER 2025-04-29 07:15 | Outpatient (CLI) | payer MEDICAID, SELFPAY ==
[2025-01-31 13:14] VITALS: BP 130/70; BMI 31.4
--- NOTE | 2025-04-29 07:15 | US_ITS ---
WS: [email or web address] RIGHT UPPER QUADRANT ULTRASOUND HISTORY: R10.11 - Right upper quadrant pain COMPARISON: 09/07/2022 Liver: 14.4 cm in length. Normal size liver and echogenicity. No bile duct dilatation or mass. Portal Vein: Normal hepatopetal flow with monophasic waveform. Gallbladder: Normally distended gallbladder with no stones or wall thickening. CBD: 0.4 cm Pancreas: Completely obscured by bowel gas. Right kidney: 11.2 cm in length. Normal size and echogenicity. No hydronephrosis or mass. Aorta and IVC: Unremarkable abdominal aorta and IVC. No ascites. US/US gall bladder [id number] IMPRESSION: 1. Normal gallbladder. 2. No hepatobiliary duct dilatation. 3. Completely obscured pancreas.
== END 2025-04-29 07:16 | disposition home or self-care (01) ==
PROVIDERS: PCP Nurse Practitioner Family; Visit Provider Nurse Practitioner Family
DX: R10.11 Right upper quadrant pain (principal)
CPT/HCPCS: 76705

== ENCOUNTER → 2025-06-24 14:17 | Outpatient (BNVA) | payer MEDICAID, SELFPAY ==
[2025-05-03 16:03] VITALS: BP 122/80; BMI 27.2
== END ==
PROVIDERS: PCP Nurse Practitioner Family; Referring Provider Nurse Practitioner Family; Visit Provider Specialist
DX: G40.309 Generalized idiopathic epilepsy and epileptic syndromes, not intractable, without status epilepticus (principal)
CPT/HCPCS: 99213

== ENCOUNTER 2025-07-29 15:07 | Outpatient (CLI) | payer MEDICAID, SELFPAY ==
[2025-05-03 16:03] VITALS: BP 122/80; BMI 27.2
[2025-07-29] MEDS: iohexol 350 mg/mL 500 mL Btl (per mL) PO (16:24)
--- NOTE | 2025-07-29 16:30 | CTR_ITS ---
PROCEDURE INFORMATION: Exam: CT Chest With Contrast; Diagnostic Exam date and time: 07/29/2025 4:29 PM Age: 69 years old Clinical indication: Other: Abnormal weight loss; Prior surgery; Surgery date: 6+ months; Surgery type: Back, hemorrhoidectomy; 35lb weight loss over 5-6 months; Additional info: R63.4 - abnormal weight loss TECHNIQUE: Imaging protocol: Diagnostic computed tomography of the chest with contrast. Radiation optimization: All CT scans at this facility use at least one of these dose optimization techniques: automated exposure control; mA and/or kV adjustment per patient size (includes targeted exams where dose is matched to clinical indication); or iterative reconstruction. Contrast material: OMNI 350; Contrast volume: 100 ml; Contrast route: INTRAVENOUS (IV); COMPARISON: CR XR chest 2V* [id number] 10/07/2022 2:51 PM RADIATION DOSE METRICS: Total DLP (mGy-cm): 809.56 FINDINGS: Thyroid: No significant visualized abnormality of the thyroid. Lungs: There are scattered small calcified granulomas in the lungs for example medially in the right apex (series 3, image 13). Well-aerated lungs. No significant or suspicious noncalcified pulmonary nodules. Minimal atelectasis in both lung bases. Pleural spaces: Unremarkable. No pneumothorax. No pleural effusion. Heart: Unremarkable. No cardiomegaly. No pericardial effusion. Lymph nodes: Unremarkable. No enlarged lymph nodes. Vasculature: Patent appearance of the central and proximal segmental pulmonary arteries. The mid to distal pulmonary arteries are not fully assessed due to contrast timing. Mild motion artifact along the ascending thoracic aorta. Mild ascending thoracic aortic aneurysm measuring 4.2 cm. Patent appearance of the thoracic aorta. Diaphragm: Small-moderate hiatal hernia with a mildly patulous appearance. Bones/joints: Degenerative changes in the lower thoracic spine. Soft tissues: No significant or acute appearing abnormality along the chest wall. PROCEDURE INFORMATION: Exam: CT Abdomen And Pelvis With Contrast Exam date and time: 07/29/2025 4:29 PM Age: 69 years old Clinical indication: Other: Abnormal weight loss; Prior surgery; Surgery date: 6+ months; Surgery type: Back, hemorrhoidectomy; 35lb weight loss over 5-6 months; Additional info: R63.4 - abnormal weight loss TECHNIQUE: Imaging protocol: Computed tomography of the abdomen and pelvis with contrast. Radiation optimization: All CT scans at this facility use at least one of these dose optimization techniques: automated exposure control; mA and/or kV adjustment per patient size (includes targeted exams where dose is matched to clinical indication); or iterative reconstruction. Contrast material: OMNI 350; Contrast volume: 100 ml; Contrast route: INTRAVENOUS (IV); COMPARISON: CT kidney stone [id number] 03/26/2022 3:38 PM RADIATION DOSE METRICS: Total DLP (mGy-cm): 809.56 FINDINGS: Liver: There is a diffuse low attenuation of the hepatic parenchyma, suspicious for diffuse fatty infiltration. In the hepatic dome there is a calcified area likely a granuloma/chronic in nature (series 10, image 25). An enhancing lesion is felt to be unlikely. This is unchanged since 2021. Gallbladder and biliary ducts: Normal. No calcified stones. No ductal dilation. Pancreas: Mild-moderate fatty atrophy of the pancreas. Spleen: Normal. No splenomegaly. Adrenal glands: Normal. No mass. Kidneys and ureters: Too small to characterize low-attenuation lesions in the right kidney and left kidney that are statistically likely to be cysts. No follow-up is necessary. Symmetric parenchymal enhancement bilaterally. No hydroureteronephrosis or nephroureterolithiasis. Stomach and bowel: Extensive diverticulosis throughout the sigmoid colon with mild chronic appearing diffuse wall thickening. No adjacent fluid or acute appearing inflammatory findings. The appearance is similar to a prior CT from 2021. No small bowel obstruction. Appendix: No evidence of appendicitis. Intraperitoneal space: Unremarkable. No free air. No significant fluid collection. Vasculature: Mild atherosclerotic calcification. Lymph nodes: Unremarkable. No enlarged lymph nodes. Urinary bladder: Unremarkable as visualized. Reproductive: Mild-moderate prostatomegaly. Bones/joints: Moderate degenerative changes at L4-L5. Soft tissues: Unremarkable. CT/CT chest abdpel w/*[id number] IMPRESSION: 1. No acute appearing abnormality in the chest is evident. 2. Mild ascending thoracic aortic aneurysm measuring 4.2 cm. Patent appearance of the thoracic aorta. 3. Small-moderate hiatal hernia with a mildly patulous appearance. Can correlate with any symptoms of esophagitis or reflux. IMPRESSION: 1. No acute appearing abnormality is definitively identified. 2. Extensive diverticulosis throughout the sigmoid colon with mild chronic appearing diffuse wall thickening. No adjacent fluid or acute appearing inflammatory findings. The appearance is similar to a prior CT from 2021. Findings likely reflect chronic inflammatory changes related to diffuse diverticulosis. Could consider follow-up with colonoscopy non emergently as an outpatient if not recently performed. 3. Hepatic Steatosis. 4. Mild-moderate prostatomegaly. COMMENTS: Consistent with the [employer]'s Incidental Findings Committee white paper (J Am Miki Radiol 2018): Any incidental renal lesion less than 1 cm or classified as too small to characterize, or any incidental cystic renal lesion characterized as simple-appearing, is likely benign. No follow-up imaging is recommended for these lesions per consensus recommendations based on imaging criteria.
[2025-07-29] MEDS: iohexol 350 mg/mL 500 mL Btl (per mL) IV (16:32)
[2025-07-29 17:03] LABS: Blood Urea Nitrogen 13 mg/dL (8-23)
== END 2025-07-29 15:08 | disposition home or self-care (01) ==
PROVIDERS: PCP Nurse Practitioner Family; Visit Provider Nurse Practitioner Family
DX: K57.30 Diverticulosis of large intestine without perforation or abscess without bleeding (principal); J98.4 Other disorders of lung; R91.8 Other nonspecific abnormal finding of lung field; J98.11 Atelectasis; I71.21 Aneurysm of the ascending aorta, without rupture; K44.9 Diaphragmatic hernia without obstruction or gangrene; K86.89 Other specified diseases of pancreas; K76.89 Other specified diseases of liver; N28.89 Other specified disorders of kidney and ureter; N40.0 Benign prostatic hyperplasia without lower urinary tract symptoms; M47.816 Spondylosis without myelopathy or radiculopathy, lumbar region; Z98.890 Other specified postprocedural states
CPT/HCPCS: 71260; 74177; 82565; 84520